=== PATIENT | female | born 1960 | race Caucasian/White ===

== ENCOUNTER → 2018-11-27 16:25 | Outpatient (CLI) | payer OTHER, SELFPAY ==
[2018-11-27 17:43] LABS: Absolute Neutrophil Count 3.8 X10^3/uL (2.0-7.7); Basophil# 0.04 X10^3/uL; Basophil% 0.7 % (0-1); Eosinophil# 0.04 X10^3/uL; Eosinophils% 0.7 % (0-5); Hematocrit 36.5 % (37-47); Hemoglobin 11.4 g/dL (12.0-15.0); Lymphocyte % 26.7 % (19-41); Mean Corp Hgb Conc 31.2 g/dL (32-36); Mean Corpuscular Hgb 26.5 pg (27.0-32.0); Mean Corpuscular Volume 84.9 fL (81-99); Mean Platelet Vol. 9.7 fl (6.2-12.0); Monocyte# 0.47 X10^3/uL; Monocyte% 7.8 % (0-10); NRBC Flagged by Analyzer 0 % (0-5); Neutrophil # 3.81 X10^3/uL (2.7-7.7); Neutrophil % 63.4 % (47-70); Platelet Count 290 K/mm3 (150-450); RBC Distribution Width CV 13.9 % (11.6-14.6)
[2018-11-27 17:53] LABS: Erythrocyte Sedimentation Rate 28 mm/hr (0-30)
[2018-11-27 18:15] LABS: AST(SGOT) 15 U/L (15-37); Alanine Aminotransfer ALT/SGPT 17 U/L (13-56); Albumin, Serum 3.8 g/dL (3.2-5.0); Alkaline Phosphatase 71 U/L (45-117); Anion Gap 8 (5-15); BUN 11 mg/dL (7-18); BUN/Creat Ratio 12.5 RATIO (10-20); CRP < 2.90 mg/L (0.0-3.0); Chloride 107 mmol/L (98-107); Creatinine, Serum 0.88 mg/dL (0.55-1.02); EST Glomerular Filtration Rate 70 mL/min (>60); Est Glom Filt Rate - Afr Amer 85 mL/min (>60); Globulin 3.8 g/dL (2.2-4.2); Glucose 83 mg/dL (74-106); Potassium 3.7 mmol/L (3.5-5.1); Protein, Total 7.6 g/dL (6.4-8.2); Rheumatoid Factor < 10.0 IU/mL (<15); Sodium Level 140 mmol/L (136-145); Thyroid Stim Hormone (TSH) 1.37 uIU/mL (0.358-3.74)
[2018-12-01 11:36] LABS: CCP IgG Antibodies 11 units (0-19)
[2018-12-01 16:07] LABS: Anti-Centromere B Ab <0.2 AI (0.0-0.9); Anti-Chromatin 0.2 AI (0.0-0.9); Anti-Jo <0.2 AI (0.0-0.9); Anti-Scleroderma-70 AB >8.0 AI (0.0-0.9); RNP Ab <0.2 AI (0.0-0.9); SJOGREN'S Anti-SS-A test < 0.2 AI (0.0-0.9); SJOGREN'S Anti-SS-B test < 0.2 AI (0.0-0.9); Smith Ab <0.2 AI (0.0-0.9)
[2018-12-02 10:00] LABS: Anti-dsDNA Ab 3 IU/mL (0-9)
== END ==
PROVIDERS: Family Provider Family Medicine; PCP Family Medicine; Visit Provider Family Medicine
DX: M25.50 Pain in unspecified joint (principal); R53.83 Other fatigue
CPT/HCPCS: 36415; 80053; 84443; 85025; 85652; 86140; 86200; 86225; 86235; 86431

== ENCOUNTER → 2018-12-31 10:36 | Outpatient (CLI) | payer OTHER, SELFPAY ==
--- NOTE | 2018-12-31 13:02 | NEURO ---
NCS and/or EMG Patient Report Ordering Doctor: Cyndee Srinivasan DATE OF SERVICE: 12/31/18 Esme Robles is a 58-year-old female who presents for electrodiagnostic testing of the upper limbs. She reports numbness and tingling in both hands, worse on the right side. Electrodiagnostic findings: Median motor nerve demonstrates normal distal latency, amplitude and conduction velocity bilaterally. Normal ulnar motor response bilaterally. Normal median and ulnar F waves. Sensory responses are within normal limits On needle EMG, complex repetitive discharges are noted in the right pronator teres. All other muscles tested showed no evidence of denervation with normal motor unit action potentials. Electrodiagnostic impression: This is an abnormal study. 1. The presence of complex repetitive discharges in the right pronator teres, which may be suggestive of chronic denervation but is of unknown clinical consequence. However, there is no electrodiagnostic evidence for peripheral neuropathy, including carpal tunnel syndrome. There is also no electrodiagnostic evidence for acute cervical radiculopathy. Would consider repeat electrodiagnostic study in 3 to 6 months if symptoms persist. If there are any further questions, please do not hesitate to contact me.
== END ==
PROVIDERS: Family Provider Family Medicine; PCP Family Medicine; Referring Provider Family Medicine; Visit Provider Family Medicine
DX: G56.00 Carpal tunnel syndrome, unspecified upper limb (principal)
CPT/HCPCS: 95886; 95913

== ENCOUNTER → 2019-01-26 08:52 | Outpatient (CLI) | payer OTHER, SELFPAY ==
[2019-01-26 09:58] LABS: EXAGEN MAILED SPECIMEN
[2019-01-26 10:34] LABS: Color, Urine Yellow (Yellow); Glucose, Dipstick Normal (Normal); Ketone-Dipstick Negative (Negative); Leukocyte Esterase-Dipstick 25 /ul (Negative); Nitrite-Dipstick Negative (Negative); Occult Blood-Urine Negative /ul (Negative); Protein-Dipstick Negative (Negative); Urine Bilirubin Dipstick Negative (Negative); Urine Clarity Clear (Clear); Urine Urobilinogen Normal (Normal)
[2019-01-26 10:47] LABS: Absolute Lymphocyte Count 1.48 X10^3/uL (0.83-4.51); Absolute Neutrophil Count 2.6 X10^3/uL (2.0-7.7); Basophil# 0.04 X10^3/uL; Basophil% 0.9 % (0-1); Eosinophil# 0.11 X10^3/uL; Eosinophils% 2.4 % (0-5); Hematocrit 36.7 % (37-47); Hemoglobin 11.5 g/dL (12.0-15.0); Lymphocyte # 1.48 X10^3/ul (4.0); Lymphocyte % 32.5 % (19-41); Mean Corp Hgb Conc 31.3 g/dL (32-36); Mean Corpuscular Hgb 26.7 pg (27.0-32.0); Mean Corpuscular Volume 85.3 fL (81-99); Mean Platelet Vol. 9.7 fl (6.2-12.0); Monocyte# 0.31 X10^3/uL; Monocyte% 6.8 % (0-10); NRBC Flagged by Analyzer 0 % (0-5); Neutrophil # 2.59 X10^3/uL (2.7-7.7); Neutrophil % 56.7 % (47-70); Platelet Count 310 K/mm3 (150-450); RBC Distribution Width CV 13.9 % (11.6-14.6); RBC Distribution Width SD 43.1 fl (35.1-43.9); White Blood Count 4.6 K/mm3 (4.4-11.0)
[2019-01-26 11:11] LABS: ALB/GLOB Ratio 0.9 RATIO (0.9-2.4); AST(SGOT) 18 U/L (15-37); Alanine Aminotransfer ALT/SGPT 23 U/L (13-56); Albumin, Serum 3.6 g/dL (3.2-5.0); Alkaline Phosphatase 65 U/L (45-117); Anion Gap 6 (5-15); BUN 12 mg/dL (7-18); BUN/Creat Ratio 15.7 RATIO (10-20); Calcium,Total 8.7 mg/dL (8.5-10.1); Chloride 109 mmol/L (98-107); Creatinine, Serum 0.77 mg/dL (0.55-1.02); EST Glomerular Filtration Rate 82 mL/min (>60); Est Glom Filt Rate - Afr Amer 99 mL/min (>60); Globulin 3.8 g/dL (2.2-4.2); Glucose 93 mg/dL (74-106); Protein, Total 7.4 g/dL (6.4-8.2); Sodium Level 140 mmol/L (136-145)
[2019-01-26 11:24] LABS: Protein, Urine (Random) 14.3 mg/dL (<11.9); Protein:Creat Ratio 71 mg/g CRE (0-200)
[2019-01-26 12:04] LABS: Hepatitis B Surface Antibody Reactive; Hepatitis B Surface Antigen Non-Reactive (Nonreactive); Hepatitis C Antibody Non-Reactive (Nonreactive)
[2019-01-27 08:22] LABS: Hepatitis B Core AB IgM Negative (Negative)
== END ==
PROVIDERS: Family Provider Family Medicine; PCP Family Medicine; Referring Provider Internal Medicine Rheumatology; Visit Provider Internal Medicine Rheumatology
DX: M06.4 Inflammatory polyarthropathy (principal); M18.0 Bilateral primary osteoarthritis of first carpometacarpal joints; R76.8 Other specified abnormal immunological findings in serum
CPT/HCPCS: 36415; 80053; 81002; 82570; 84156; 85025; 86705; 86706; 86803; 87340

== ENCOUNTER 2019-04-07 13:00 | Outpatient (RCR) | payer OTHER, SELFPAY ==
--- NOTE | 2019-03-04 14:15 | HP.PTEVAL ---
Patient's Visit Information ADIS MOLINA is a 59 year old F referred to Physical Therapy by Gabino Godinez MD with a diagnosis of CERVICALGIA, C6 DISTRIBUTION PAIN.. Date of Evaluation: 03/04/19 Physical Therapist: Jennifer Lama PT, Cert MDT - Visit Plan Frequency: 2x /Week Duration: 2 Months Plan: CERVICAL AND/OR SHOULDER US AND E-STIM WITH MH NEEDED. POSTURE CORRECTION/STRENGTHENING, INSTRUCTION IN APPROPRIATE BODY MECHANICS AND ACTIVITY MODIFICATIONS. MALENA UE ROM, STRETCHING AND STRENGTHENING. HEP INSTRUCTION. 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 Disability: NO. Present symptoms: NO NECK PAIN. MALENA SHOULDER PAIN RIGHT > LEFT. RIGHT HAND DOMINANT. MALENA FINGER NUMBNESS AT THE TIPS. TINGLING IN FEET AND TOES TOO. SOMETIMES HANDS GET NUMB SLEEPING WITH ELBOW BENT. Present since: ABOUT 3-4 MONTHS. Pain Scale: Worst - 4/10 Least - 1/10. Currently: 04/03. Commenced as a result of: NO APPARENT REASON. Symptoms at onset: NUMBNESS IN FINGER TIPS. Worse: SLEEPING WITH ELBOWS BENT. BEING AT COMPUTER TOO LONG, READING, LOOKING DOWN, DRIVING. Better: SLEEPING WITH ELBOWS STRAIGHT, HEAD ROLLS, LYING SUPINE. Disturbed sleep: YES. 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 Dizziness: NO. Tinnitis: NO. Nausea: NO. Shortness of Breath: NO. Difficulty Swollowing: NO. Gait: NORMAL. Accidents: RECENT FALL ON LEFT SHOULDER LAST SATURDAY - ALSO HIT THE BACK OF HER HEAD. SCRAPED BOTH KNEES AND LEFT THUMB. NO PHYSICIAN ASSESSMENT SINCE FALL. SHORT LITTLE FALL. Unexplained weight loss: NO. Imaging: RECENT NECK X-RAY - PATIENT HAS NOT RECEIVED THE RESULTS. DEC 2018 EMG - Electrodiagnostic impression: This is an abnormal study. 1. The presence of complex repetitive discharges in the right pronator teres, which may be suggestive of chronic denervation but is of unknown clinical consequence. However, there is no electrodiagnostic evidence for peripheral neuropathy, including carpal tunnel syndrome. There is also no electrodiagnostic evidence for acute cervical radiculopathy. Would consider repeat electrodiagnostic study in 3 to 6 months if symptoms persist. PMH/Recent major surgery: RECENTLY DIAGNOSED WITH RA AND SJORGREN'S DZ. OTEHR: PATIENT REPORTS HER EYES HAVE BEEN BOTHERING HER A LOT AND SHE HAS BEEN GETTING A RED RASH AROUND HER EYES THAT SHE HAS BEEN SEEN TWICE FOR. - Objective Sitting Posture/Standing Posture: POOR. FH. RS. INCREASED KYPHOSIS. Active Correction of posture: BETTER. Other Observations: INDEP GAIT AND TRANSFERS. PRETTY FLAT AFFECT THROUGHOUT THERAPY SESSION. Motor deficit: 25 LBS RIGHT AND 35 LBS LEFT (RIGHT HAND DOMINANT). MALENA UE'S GROSSLY 4/5 WITH MMT'ING. Sensory deficit: NO. ROM deficit: MALENA UE'S WFL. Reflexes: UNABLE TO ELICIT MALENA UE DTR'.S. Dural Signs: NEGATIVE MALENA UE'S. Cervical Mvmt Loss: Flex: NIL. Pro: NIL. Ext: MOD. Ret: TAYLOR. RSB: MOD. LSB: MOD. R Rot: MOD. L Rot: MOD. LEFT CERVICAL ROT TESTING PROVOKES RIGHT NECK PAIN. CERVCAL ROM TESTING HAS NE ON FINGERS. Postural strength: POOR. Palpation: PALPATION OF THE C456 REGION INCREASES RIGHT HAND SX'S BRIEFLY. - Goals Goal 1:: DECREASE C/O NECK AND UE SX'S. Goal Time Frame: 4-6 Weeks Goal 2:: IMPROVE LIFTING, READING, SLEEP, WORK AND DRIVING FUNCTION Goal Time Frame: 4-6 Weeks Goal 3:: INSTRUCT IN PROPHYLAXIS Goal Time Frame: 4-6 Weeks - Anticipated Interventions Patient/Client Instruction: Educate patient on: Condition, Plan of Care, Risk Factors, Benefits of Fitness Program For the Purpose of:: To improve self management Therapeutic Exercise to Include: Strength training, Endurance training, Body mechanics, Postural training, Scapular Strength/Stabilization For the Purpose of:: To decrease pain, To increase ROM, To improve muscle performance and motor function, To improve ability to perform ADL's, To improve ability of physical actions for home/community/work/leisure Thank you for the opportunity to evaluate your patient. For Medicare and Medicare HMO plans, please review the plan of care and approve it. It will need to be FAXED BACK to us at [phone] for Medicare purposes. For Medicare only, by signing this I certify the plan of care. Please let me know if there are questions or concerns regarding this plan of care. Physician Signature: Date:
--- NOTE | 2019-04-07 13:22 | HP.PTDCSUM_ITS ---
HP - PT D/C Summary It has been my pleasure to treat ADIS MOLINA under orders from Gabino Godinez MD, for the diagnosis of CERVICALGIA, C6 DISTRIBUTION PAIN. for a total of 6 visit(s). Discharge Date: 04/07/19 Please see the following information for a summary of their discharge status. - Subjective Subjective: PATIENT REPORTS SHE HAS BEEN DOING HER EX'S EVERY DAY AND SHE HAS BEEN DOING GOOD SINCE LAST VISIT. - Pain NECK Pain Intensity (Out of 10): 0 WRISTS AND HANDS Pain Intensity (Out of 10): 0 NUMBNESS/TINGLING Pain Intensity (Out of 10): 0 - Overall Improvement % Improvement: 100 - Objective Objective/Function: PATIENT WAS SEEN TODAY FOR RE-ASSESSMENT OF PROGRESS TOWARD THE SET PT GOALS AND THE NEED FOR FURTHER PHYSICAL THERAPY VS READINESS FOR DISCHARGE. UPON EXAM, ALL GOALS HAVE BEEN MET. SHE IS PAINFREE AND INDEP WITH A HEP. RIGHT INFECTION CONTROL NURSE STRENGTH HAS IMPROVED TO 40 LBS AND LEFT 42 LBS. - Goals Goal 1:: DECREASE C/O NECK AND UE SX'S. Goal Progress: Goal Met Goal 2:: IMPROVE LIFTING, READING, SLEEP, WORK AND DRIVING FUNCTION Goal Progress: Goal Met Goal 3:: INSTRUCT IN PROPHYLAXIS Goal Progress: Goal Met - Plan Plan: D/C - PATIENT AGREEABLE. - D/C Information If there are questions or concerns regarding this patient's physical therapy, please feel free to call me at [phone]. Thank you for the referral of this patient. Sincerely, Jennifer Lama, PT, Cert MDT
== END 2019-04-07 19:00 | disposition home or self-care (01) ==
LOC: PT 13:00
PROVIDERS: Family Provider Family Medicine; PCP Family Medicine; Referring Provider Psychiatry & Neurology Neurology; Visit Provider Psychiatry & Neurology Neurology
DX: M54.2 Cervicalgia (principal); R20.0 Anesthesia of skin; R53.1 Weakness
CPT/HCPCS: 97014; 97035; 97162; 97164; 97530; G0283

== ENCOUNTER → 2019-05-19 09:00 | Outpatient (CLI) | payer OTHER, SELFPAY ==
[2019-05-19 10:41] LABS: Absolute Lymphocyte Count 1.46 X10^3/uL (0.83-4.51); Absolute Neutrophil Count 2.5 X10^3/uL (2.0-7.7); Basophil# 0.05 X10^3/uL; Basophil% 1.1 % (0-1); Eosinophil# 0.08 X10^3/uL; Eosinophils% 1.7 % (0-5); Hematocrit 37.8 % (37-47); Hemoglobin 11.6 g/dL (12.0-15.0); Lymphocyte # 1.46 X10^3/ul (4.0); Lymphocyte % 31.3 % (19-41); Mean Corp Hgb Conc 30.7 g/dL (32-36); Mean Corpuscular Hgb 25.1 pg (27.0-32.0); Mean Corpuscular Volume 81.6 fL (81-99); Mean Platelet Vol. 9.7 fl (6.2-12.0); Monocyte# 0.49 X10^3/uL; Monocyte% 10.5 % (0-10); NRBC Flagged by Analyzer 0 % (0-5); Neutrophil # 2.53 X10^3/uL (2.7-7.7); Neutrophil % 54.3 % (47-70); Platelet Count 294 K/mm3 (150-450); RBC Distribution Width CV 15.4 % (11.6-14.6); RBC Distribution Width SD 45.1 fl (35.1-43.9); Red Blood Count 4.63 M/mm3 (4.2-5.4); White Blood Count 4.7 K/mm3 (4.4-11.0)
[2019-05-19 10:59] LABS: AST(SGOT) 14 U/L (15-37); Alanine Aminotransfer ALT/SGPT 21 U/L (13-56); Albumin, Serum 3.8 g/dL (3.2-5.0); Alkaline Phosphatase 63 U/L (45-117); Anion Gap 3 (5-15); BUN 12 mg/dL (7-18); BUN/Creat Ratio 14.5 RATIO (10-20); Calcium,Total 8.7 mg/dL (8.5-10.1); Chloride 108 mmol/L (98-107); Creatinine, Serum 0.82 mg/dL (0.55-1.02); EST Glomerular Filtration Rate 75 mL/min (>60); Est Glom Filt Rate - Afr Amer 91 mL/min (>60); Globulin 3.8 g/dL (2.2-4.2); Glucose 91 mg/dL (74-106); Potassium 3.9 mmol/L (3.5-5.1); Protein, Total 7.6 g/dL (6.4-8.2); Sodium Level 140 mmol/L (136-145)
== END ==
PROVIDERS: PCP Family Medicine; Referring Provider Internal Medicine Rheumatology; Visit Provider Internal Medicine Rheumatology
DX: M06.4 Inflammatory polyarthropathy (principal); R76.8 Other specified abnormal immunological findings in serum; M18.0 Bilateral primary osteoarthritis of first carpometacarpal joints
CPT/HCPCS: 36415; 80053; 85025

== ENCOUNTER → 2019-08-14 09:26 | Outpatient (CLI) | payer OTHER, SELFPAY ==
[2019-08-14 12:24] LABS: Absolute Lymphocyte Count 1.39 X10^3/uL (0.83-4.51); Absolute Neutrophil Count 2.8 X10^3/uL (2.0-7.7); Basophil# 0.05 X10^3/uL; Eosinophil# 0.11 X10^3/uL; Eosinophils% 2.3 % (0-5); Hematocrit 39.2 % (37-47); Hemoglobin 12.3 g/dL (12.0-15.0); Lymphocyte # 1.39 X10^3/ul (4.0); Lymphocyte % 28.8 % (19-41); Mean Corp Hgb Conc 31.4 g/dL (32-36); Mean Corpuscular Hgb 26.5 pg (27.0-32.0); Mean Corpuscular Volume 84.3 fL (81-99); Mean Platelet Vol. 9.7 fl (6.2-12.0); Monocyte# 0.46 X10^3/uL; Monocyte% 9.5 % (0-10); NRBC Flagged by Analyzer 0 % (0-5); Neutrophil # 2.76 X10^3/uL (2.7-7.7); Neutrophil % 57.2 % (47-70); Platelet Count 286 K/mm3 (150-450); RBC Distribution Width CV 15.8 % (11.6-14.6); RBC Distribution Width SD 47.9 fl (35.1-43.9); Red Blood Count 4.65 M/mm3 (4.2-5.4); White Blood Count 4.8 K/mm3 (4.4-11.0)
[2019-08-14 12:55] LABS: AST(SGOT) 16 U/L (15-37); Alanine Aminotransfer ALT/SGPT 20 U/L (13-56); Albumin, Serum 3.6 g/dL (3.2-5.0); Alkaline Phosphatase 56 U/L (45-117); Anion Gap 4 (5-15); BUN 12 mg/dL (7-18); BUN/Creat Ratio 15.1 RATIO (10-20); Calcium,Total 8.7 mg/dL (8.5-10.1); Chloride 110 mmol/L (98-107); EST Glomerular Filtration Rate 78 mL/min (>60); Est Glom Filt Rate - Afr Amer 95 mL/min (>60); Globulin 3.6 g/dL (2.2-4.2); Glucose 91 mg/dL (74-106); Potassium 3.9 mmol/L (3.5-5.1); Protein, Total 7.2 g/dL (6.4-8.2); Sodium Level 140 mmol/L (136-145)
== END ==
PROVIDERS: PCP Family Medicine; Referring Provider Internal Medicine Rheumatology; Visit Provider Internal Medicine Rheumatology
DX: M06.4 Inflammatory polyarthropathy (principal); M18.0 Bilateral primary osteoarthritis of first carpometacarpal joints; M35.00 Sjogren syndrome, unspecified
CPT/HCPCS: 36415; 80053; 85025

== ENCOUNTER → 2022-01-19 | Outpatient (CLI) | payer OTHER, SELFPAY ==
[2022-01-19 11:58] LABS: Erythrocyte Sedimentation Rate 41 mm/hr (0-30)
[2022-01-19 12:12] LABS: ALB/GLOB Ratio 0.9 RATIO (0.9-2.4); AST(SGOT) 16 U/L (15-37); Alanine Aminotransfer ALT/SGPT 22 U/L (13-56); Albumin, Serum 3.7 g/dL (3.2-5.0); Alkaline Phosphatase 73 U/L (45-117); Anion Gap 6 (5-15); BUN 13 mg/dL (7-18); BUN/Creat Ratio 15.4 RATIO (10-20); CRP 6.53 mg/L (0.0-3.0); Calcium,Total 8.8 mg/dL (8.5-10.1); Chloride 106 mmol/L (98-107); Cholesterol 185 mg/dL (200); Creatinine, Serum 0.84 mg/dL (0.55-1.02); EST Glomerular Filtration Rate 73 mL/min (>60); Est Glom Filt Rate - Afr Amer 88 mL/min (>60); Globulin 3.9 g/dL (2.2-4.2); Glucose 97 mg/dL (74-106); High Density Lipoprotein 41 mg/dL; Potassium 3.9 mmol/L (3.5-5.1); Protein, Total 7.6 g/dL (6.4-8.2); Sodium Level 137 mmol/L (136-145); Triglycerides 76 mg/dL; Very Low Density Lipoprotein 15 mg/dL (5-40)
[2022-01-19 12:14] LABS: Absolute Lymphocyte Count 1.35 X10^3/uL (0.83-4.51); Absolute Neutrophil Count 3.1 X10^3/uL (2.0-7.7); Basophil# 0.05 X10^3/uL; Eosinophil# 0.15 X10^3/uL; Eosinophils% 2.9 % (0-5); Hematocrit 35.2 % (37-47); Hemoglobin 10.9 g/dL (12.0-15.0); Lymphocyte # 1.35 X10^3/ul (0.83-4.51); Lymphocyte % 26.1 % (19-41); Mean Corpuscular Hgb 24.2 pg (27.0-32.0); Mean Corpuscular Volume 78.2 fL (81-99); Mean Platelet Vol. 9.4 fl (6.2-12.0); Monocyte# 0.45 X10^3/uL; Monocyte% 8.7 % (0-10); NRBC Flagged by Analyzer 0 % (0-5); Neutrophil # 3.14 X10^3/uL (2.7-7.7); Neutrophil % 60.7 % (47-70); Platelet Count 304 K/mm3 (150-450); RBC Distribution Width CV 17.6 % (11.6-14.6); RBC Distribution Width SD 50.1 fl (35.1-43.9); White Blood Count 5.2 K/mm3 (4.4-11.0)
[2022-01-22 15:04] LABS: Ferritin 10 ng/mL (8-252); Iron 28 ug/dL (50-170)
== END | disposition home or self-care (01) ==
PROVIDERS: PCP Family Medicine; Visit Provider Family Medicine
DX: M35.00 Sjogren syndrome, unspecified (principal); E78.5 Hyperlipidemia, unspecified; D64.9 Anemia, unspecified; Z51.81 Encounter for therapeutic drug level monitoring
CPT/HCPCS: 36415; 80053; 80061; 82728; 83540; 85025; 85652; 86140

== ENCOUNTER → 2022-01-22 | Outpatient (CLI) | payer OTHER, SELFPAY ==
--- NOTE | 2022-01-22 16:03 | BI_ITS ---
MAMMOGRAPHY - BILATERAL SCREENING REASON FOR EXAM: Female, 62 years old. Routine annual screening examination. PERTINENT HISTORY: Non-contributory. TECHNIQUE: Digital bilateral breast vicky (3D mammographic acquisition) in the CC and MLO projections. 2-D mediolateral oblique (MLO) and craniocaudad (CC) views of both breasts were obtained. CAD: Full Field Digital Mammography with Computer Added Detection was performed. COMPARISON: No comparison mammograms available at this time. If any prior films become available, an addendum to this report can be generated. FINDINGS: Breast Composition: The breasts are heterogeneously dense, which may obscure small masses. There is a 9.1 mm x 10.5 mm well-defined nodule with punctate calcification in the deep central slightly medial aspect of the left breast. This is suggestive of a partially calcified fibroadenoma. Correlation with ultrasound is recommended. Stable fat-containing bilateral axillary lymph nodes. No other significant abnormalities are identified. BI/SCRN MAMM (CAD)W/VICKY BILAT IMPRESSION: 9.1 mm x 10.5 mm well-defined nodule with punctate calcification in the central slightly medial aspect of the left breast as described. Correlation with ultrasound is recommended. ASSESSMENT CATEGORY: BIRADS Category 0: Incomplete. Need additional imaging evaluation. A letter regarding these results will be sent to the patient by the facility within 30 days. Approximately 10% of breast cancers are not detected by mammography. A normal mammogram should not delay biopsy of a clinically suspicious abnormality. [id number] Electronically Signed: Keven Newman MD at 14:24 EDT ,
== END | disposition home or self-care (01) ==
LOC: OPBI 16:02
PROVIDERS: PCP Family Medicine; Visit Provider Family Medicine
DX: Z12.31 Encounter for screening mammogram for malignant neoplasm of breast (principal)
CPT/HCPCS: 77063; 77067

== ENCOUNTER → 2022-01-26 | Outpatient (CLI) | payer OTHER, SELFPAY ==
--- NOTE | 2022-01-26 10:49 | US_ITS ---
STUDY: ULTRASOUND BREAST - RIGHT REASON FOR EXAM: Female, 62 years old. Abnormal screening mammogram. TECHNIQUE: Axial and longitudinal images of the RIGHT breast were performed with a high resolution ultrasound transducer. # OF IMAGES: 6 COMPARISON: Comparison is made with prior mammogram dated 01/22/2022. FINDINGS: RIGHT Breast: There is a 1.2 cm x 0.9 cm x 0.7 cm cyst at the 9 o''clock position of the breast at 1 cm from nipple. US/Breast Limited Unilateral IMPRESSION: 1.2 cm x 0.9 cm x 0.7 cm cyst in the retroareolar region of the breast. ASSESSMENT CATEGORY: BIRADS Category 2: Benign. A letter regarding these results will be sent to the patient by the facility within 30 days. Electronically Signed: Keven Newman MD at 12:42 EST ,
== END | disposition home or self-care (01) ==
PROVIDERS: PCP Family Medicine; Referring Provider Family Medicine; Visit Provider Family Medicine
DX: R92.2 Inconclusive mammogram (principal)
CPT/HCPCS: 76642

== ENCOUNTER 2022-10-30 13:31 | Outpatient (CLI) | payer OTHER, SELFPAY ==
--- NOTE | 2022-10-30 13:36 | ECHOD_ITS ---
Reason For Study: CROW/CSA Procedure This was a 2D Doppler, Color Flow transthoracic echocardiogram. Exam performed in department. Left Ventricle Normal LV size. Left ventricular systolic function is normal. The estimated ejection fraction is 60 %. No regional wall motion abnormalities noted. Right Ventricle Normal RV size. Normal systolic function. Atria Normal left atrium. Normal right atrium. Mitral Valve Normal mitral valve. Tricuspid Valve Normal tricuspid valve. Mild (1+) tricuspid valve insufficiency. Pulmonary artery systolic pressure is 30 mmHg. Aortic Valve Normal aortic valve. Mild (1+) aortic valve insufficiency. Pulmonic Valve Normal pulmonic valve. Great Vessels Normal aortic root. The pulmonary artery is normal size. Normal inferior vena cava. Pericardium/Pleural No pericardial effusion. MMode/2D Measurements & Calculations LVIDd: 4.5 cm IVSd: 1.0 cm Ao root diam: 3.0 cm LVIDs: 2.9 cm LVPWd: 0.90 cm LA dimension: 3.9 cm RVDd: 4.1 cm FS: 36.7 % LAV(MOD-bp): 58.1 ml LVAd ap4: 29.6 cm2 SV(MOD-sp4): 59.2 ml LAV(MOD-bp) Indexed: 27.1 ml/m2 LVLd ap4: 8.1 cm LAV(MOD-sp2): 50.1 ml EDV(MOD-sp4): 88.1 ml LAV(MOD-sp4): 62.3 ml EDV(sp4-el): 91.8 ml LVAs ap4: 14.9 cm2 LVLs ap4: 6.5 cm ESV(MOD-sp4): 29.0 ml ESV(sp4-el): 29.4 ml EF(MOD-sp4): 67.1 % EF(sp4-el): 68.0 % SV(sp4-el): 62.5 ml LA A4 area: 20.1 cm2 RA A4 area: 18.2 cm2 Time Measurements MV dec time: 0.16 sec Doppler Measurements & Calculations MV E max willi: 110.9 cm/sec Lat Peak E' Willi: 11.8 cm/sec Med Peak E' Willi: 11.7 cm/sec MV A max willi: 100.0 cm/sec E/E' lat: 9.4 E/E' med: 9.5 MV E/A: 1.1 MV V2 max: 142.8 cm/sec MV P1/2t max willi: 142.8 cm/sec Ao V2 max: 166.9 cm/sec MV max P.2 mmHg MV P1/2t: 63.1 msec Ao max P.2 mmHg MV V2 mean: 79.3 cm/sec Ao V2 mean: 113.4 cm/sec MV mean P.0 mmHg MV dec slope: 663.4 cm/sec2 Ao mean P.9 mmHg MV V2 VTI: 37.1 cm MVA(P1/2t): 3.5 cm2 Ao V2 VTI: 39.8 cm AV (velocity ratio): 0.74 AI max willi: 357.5 cm/sec LV V1 max: 123.9 cm/sec PA V2 max: 115.0 cm/sec AI max P.2 mmHg LV V1 max P.1 mmHg PA V2 mean: 86.9 cm/sec AI dec slope: 152.3 cm/sec2 LV V1 mean P.3 mmHg AI P1/2t: 687.4 msec LV V1 mean: 85.2 cm/sec LV V1 VTI: 29.5 cm TR max willi: 255.7 cm/sec TR max P.2 mmHg ECHO/Echo Complete Interpretation Summary Normal LV size. Left ventricular systolic function is normal. The estimated ejection fraction is 60 %. Structurally normal valves. Ordering Physician: Jace Castillo V Referring Physician: Cyndee Srinivasan Performed By: Sea Rooney RCS
== END 2022-10-30 23:59 | disposition home or self-care (01) ==
PROVIDERS: PCP Family Medicine; Referring Provider Internal Medicine Pulmonary Disease; Visit Provider Internal Medicine Pulmonary Disease
DX: G47.33 Obstructive sleep apnea (adult) (pediatric) (principal); G47.37 Central sleep apnea in conditions classified elsewhere
CPT/HCPCS: 93306

== ENCOUNTER → 2024-12-04 | Outpatient (CLI) | payer OTHER, SELFPAY ==
--- OUTSIDE RECORDS SUMMARY | 2024-12-04 18:54 | XMS RPT_ITS | CCD ---
Author Organization [facility] Care Team Providers Care Graphic User Interface Designer Name Role Phone AQUILES VALENCIA Admitting Unavailable ERIKAQUILES Attending Unavailable AQUILES VALENCIA Primary Care Unavailable DR CYNDEE SRINIVASAN DO Primary Care Physician Zarina, Dr. Cotter Primary Care Provider Dr. Azar Rayo Attending Provider [phone] Malys, Cyndee Primary Care Unavailable Malys, Cyndee Attending Unavailable Malys, Cyndee Primary Care Unavailable Azar Rayo Attending Unavailable Malys, Cyndee Primary Care Unavailable Sibilia, Jace V Attending Unavailable Sibilia, Jace V Referring Unavailable Malys, Cyndee Primary Care Unavailable Malys, Cyndee Attending Unavailable Malys, Cyndee Primary Care Unavailable Malys, Cyndee Attending Unavailable Malys, Cyndee Referring Unavailable Malys, Cyndee Primary Care Unavailable Malys, Cyndee Attending Unavailable NANETTE PATEL MD Attending Unavailable LAMYS , DR CYNDEE White Primary Care Unavailable Medications Current Medications Medication Drug Class(es) Dates Sig (Normalized) Sig (Original) acetaminophen 325 mg / HYDROcodone bitartrate 5 mg oral tablet (1 source) Opioid Agonist Start: 07-14-2015 [place] 325- 5 mg oral tablet Dose = 1 tab(s), Oral, q4h, PRN Pain, scale 1-4 ( Mild ), # 10 tab(s), 0 Refill(s) Start Date: 07/14/15 Status: Ordered Ascorbic Acid (2 sources) Vitamin C Start: 02-14-2022 Vitamin C qDay, 0 Refill(s) Start Date: 02/14/22 Status: Ordered ferrous sulfate 325 mg oral tablet (3 sources) Start: 07-05-2015 IRON (ferrous sulfate 325 mg) 65 mg oral tablet Dose : 325 mg = 1 tab(s), Oral, qDay, Take with food., # 60 tab(s), 3 Refill(s) Start Date: 02/14/22 Status: Ordered ibuprofen 600 mg oral tablet (2 sources) Nonsteroidal Anti-inflammatory Drug Start: 07-14-2015 Motrin 600 mg oral tablet Dose : 600 mg = 1 tab(s), Oral, q6h, # 20 tab(s), 0 Refill(s) Start Date: 07/14/15 Status: Ordered Multivitamin preparation (2 sources) Start: 07-05-2015 take 1 tablet by mouth once daily Multivitamin Dose = 1 tab(s), Oral, Daily, 0 Refill(s) Start Date: 07/05/15 Status: Ordered Vitamin B Complex oral capsule (2 sources) Start: 07-05-2015 take 1 capsule by mouth once daily Vitamin B Complex oral capsule Dose = 1 cap(s), Oral, Daily, 0 Refill(s) Start Date: 07/05/15 Status: Ordered vitamin B12 (2 sources) Vitamin B12 Start: 02-14-2022 Vitamin B12 0 Refill(s) Start Date: 02/14/22 Status: Ordered Vitamin D3 5000 intl units oral capsule (2 sources) Start: 07-05-2015 Vitamin D3 5000 intl units oral capsule Dose : 5,000 unit(s) = 1 cap(s), Oral, qDay, 0 Refill(s) Start Date: 07/05/15 Status: Ordered Problems Active Problems Problem Classification Problem Date Documented Da te Episodic/Chronic Nutritional deficiencies (2 sources) Vitamin D deficiency 07-05-2015 Chronic Osteoarthritis (2 sources) Arthritis 07-05-2015 Chronic Comment on above: Left shoulder Other female genital disorders (2 sources) Dysplasia of cervix 07-05-2015 Episodic Comment on above: Moderate Residual codes; unclassified (1 source) Obstructive sleep apnea (adult) (pediatric); Translations: [Obstructive sleep apnea (adult) (pediatric)] Onset: 11-08-2022 Chronic Residual codes; unclassified (1 source) Hypersomnia, unspecified; Translations: [Hypersomnia, unspecified] Onset: 02-03-2022 Chronic Residual codes; unclassified (1 source) 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 Comment on above: on CPAP Systemic lupus erythematosus and connective tissue disorders (1 source) Sicca syndrome, unspecified; Translations: [Sjogren syndrome, unspecified] Onset: 01-26-2022 Chronic Past or Other Problems Problem Classification Problem Date Documented Da te Episodic/Chronic Other screening for suspected conditions (not mental disorders or infectious disease) (3 sources) No current problems or disability; Translations: [No Chronic Problems] Onset: 01-27-2022 02-14-2022 Episodic Results Test Name Value Interpretation Reference Range Facil ity MA MAMMOGRAM SCREENING BILAT ERAL W/TOMOon 03-30-2023 MA MAMMOGRAM SCREENING BILATERAL W/VICKY ORIGINAL FROM: [place] [address] PROCEDURE FOR: [place] [address] Home: PID#: [id number] Exam#: [id number] : 1960 Age: 63 TO: NANETTE PATEL MD [address] [facility] [address] [place] [address] Fax: NO FAX EXAMINATION: SCREENING DIGITAL BILATERAL MAMMOGRAM WITH TOMOSYNTHESIS, 03/29/2023 6:01 am TECHNIQUE: Screening mammography of the bilateral breasts was performed with tomosynthesis. 2D standard and 3D tomosynthesis combination imaging performed through both breasts in the MLO and CC projection. Computer aided detection was utilized in the interpretation of this exam. COMPARISON: 01/22/2022, 10/04/2016 HISTORY: Breast cancer screening. FINDINGS: BREAST DENSITY: Scattered fibroglandular tissue There are benign calcifications in both breasts. There is a stable benign-appearing mass in the left breast. There are no significant masses or calcifications. IMPRESSION: No mammographic evidence of malignancy. Continued screening with annual mammograms is recommended. Angelia Browning risk calculations, generated with the history provided, report this patient's 10 year risk and lifetime risk for developing breast cancer at 2.9% and 6.6%, respectively. Based on this assessment tool, if the patient's calculated lifetime risk is below 20%, then the patient is considered at average risk for developing breast cancer. If the patient's calculated lifetime risk is at or above 20%, then the patient is considered high risk for developing breast cancer and may be a candidate for supplemental breast MRI screening in addition to annual mammographic screening per the [place] [employer]. BIRADS: MAMMOGRAM BI-RADS: 2: Benign finding RECALL: 1 year screening RECALL TYPE: mammo LETTER SENT: Normal BI-RADS 1 and 2 Interpreted by: Shawna An Preliminary Report By: Shawna An Electronically signed By Shawna An Dictated Date: 03/30/2023 10:20:37 AM Prelim Date: 03/30/2023 10:29:06 AM Sign Date: 03/30/2023 10:29:06 AM Ordering Provider: NANETTE PATEL Counter Pocket Sewer: CIERRA SARAVIA RT(R)(M)(CT) [employer] letter sent: Normal BI-RADS 1 and 2 Mammogram BI-RADS: 2 Benign Normal [facility] ([place]) Echo Completeon 10-30-2022 Echo Complete [facility] [address] [place] [address] Echo Complete 10/30/22 1407 MR#: [id number] Acct: [id number] Name: ADIS MOLINA Rep #: [id number] : 1960 62 From: Azar Rayo MD Attending Dr: Dr. Jace Castillo MD Status: REG CLI Ordering Dr: Jace Castillo MD Date: 10/30/22 Location: [facility] Sex: F C Admitted: Reason For Study: CROW/CSA Procedure This was a 2D Doppler, Color Flow transthoracic echocardiogram. Exam performed in department. Left Ventricle Normal LV size. Left ventricular systolic function is normal. The estimated ejection fraction is 60 %. No regional wall motion abnormalities noted. Right Ventricle Normal RV size. Normal systolic function. Atria Normal left atrium. Normal right atrium. Mitral Valve Normal mitral valve. Tricuspid Valve Normal tricuspid valve. Mild (1+) tricuspid valve insufficiency. Pulmonary artery systolic pressure is 30 mmHg. Aortic Valve Normal aortic valve. Mild (1+) aortic valve insufficiency. Pulmonic Valve Normal pulmonic valve. Great Vessels Normal aortic root. The pulmonary artery is normal size. Normal inferior vena cava. Pericardium/Pleural No pericardial effusion. MMode/2D Measurements Calculations LVIDd: 4.5 cm IVSd: 1.0 cm Ao root diam: 3.0 cm LVIDs: 2.9 cm LVPWd: 0.90 cm LA dimension: 3.9 cm RVDd: 4.1 cm FS: 36.7 % LAV(MOD-bp): 58.1 ml LVAd ap4: 29.6 cm2 SV(MOD-sp4): 59.2 ml LAV(MOD-bp) Indexed: 27.1 ml/m2 LVLd ap4: 8.1 cm LAV(MOD-sp2): 50.1 ml EDV(MOD-sp4): 88.1 ml LAV(MOD-sp4): 62.3 ml EDV(sp4-el): 91.8 ml LVAs ap4: 14.9 cm2 LVLs ap4: 6.5 cm ESV(MOD-sp4): 29.0 ml ESV(sp4-el): 29.4 ml EF(MOD-sp4): 67.1 % EF(sp4-el): 68.0 % SV(sp4-el): 62.5 ml LA A4 area: 20.1 cm2 RA A4 area: 18.2 cm2 Time Measurements MV dec time: 0.16 sec Doppler Measurements Calculations MV E max willi: 110.9 cm/sec Lat Peak E' Willi: 11.8 cm/sec Med Peak E' Iwlli: 11.7 cm/sec MV A max willi: 100.0 cm/sec E/E' lat: 9.4 E/E' med: 9.5 MV E/A: 1.1 MV V2 max: 142.8 cm/sec MV P1/2t max willi: 142.8 cm/sec Ao V2 max: 166.9 cm/sec MV max P.2 mmHg MV P1/2t: 63.1 msec Ao max P.2 mmHg MV V2 mean: 79.3 cm/sec Ao V2 mean: 113.4 cm/sec MV mean P.0 mmHg MV dec slope: 663.4 cm/sec2 Ao mean P.9 mmHg MV V2 VTI: 37.1 cm MVA(P1/2t): 3.5 cm2 Ao V2 VTI: 39.8 cm AV (velocity ratio): 0.74 AI max willi: 357.5 cm/sec LV V1 max: 123.9 cm/sec PA V2 max: 115.0 cm/sec AI max P.2 mmHg LV V1 max P.1 mmHg PA V2 mean: 86.9 cm/sec AI dec slope: 152.3 cm/sec2 LV V1 mean P.3 mmHg AI P1/2t: 687.4 msec LV V1 mean: 85.2 cm/sec LV V1 VTI: 29.5 cm TR max willi: 255.7 cm/sec TR max P.2 mmHg ECHO/Echo Complete Interpretation Summary Normal LV size. Left ventricular systolic function is normal. The estimated ejection fraction is 60 %. Structurally normal valves. Ordering Physician: Jace Castillo V Referring Physician: Cyndee Srinivasan Performed By: Sea Rooney RCS 10/31/22 1114 Date Azar Rayo MD CC: Dr. Cyndee Srinivasan DO; Dr. Jace Castillo MD Date Dictated: 10/30/22 1407 Date Transcribed: 10/31/22 1114 Occupational Therapy Technician: Signed Normal [facility] Breast Limited Unilateralon 01-26-2022 Breast Limited Unilateral [facility] Imaging Services [address] [place] [address] Breast Limited Unilateral MR#: [id number] Acct: [id number] Name: ADIS MOLINA Rep #: [id number] : 1960 F 62 From: Keven alvarez MD PCP: Dr. Cyndee Srinivasan DO Status: [facility] CLI Study: Breast Limited Unilateral Date of Exam: Exam# [id number] Ordering Dr: Cyndee Srinivasan DO STUDY: ULTRASOUND BREAST - RIGHT REASON FOR EXAM: Female, 62 years old. Abnormal screening mammogram. TECHNIQUE: Axial and longitudinal images of the RIGHT breast were performed with a high resolution ultrasound transducer. # OF IMAGES: 6 COMPARISON: Comparison is made with prior mammogram dated 01/22/2022. FINDINGS: RIGHT Breast: There is a 1.2 cm x 0.9 cm x 0.7 cm cyst at the 9 o''clock position of the breast at 1 cm from nipple. US/Breast Limited Unilateral IMPRESSION: 1.2 cm x 0.9 cm x 0.7 cm cyst in the retroareolar region of the breast. ASSESSMENT CATEGORY: BIRADS Category 2: Benign. A letter regarding these results will be sent to the patient by the facility within 30 days. Electronically Signed: Keven Newman MD at 12:42 EST Reading Location ID and State: [address] [place] [address] , Service support , CC: Dr. Cyndee Srinivasan, Occupational Therapy Technician: Signed Normal [facility] Ferritinon 01-22-2022 Ferritin [Mass/Vol] 10 ng/mL Normal 8-[address] [facility] Comment on above: Order Comment: DR MELODY PRINCE ADDED A FERRITIN AND FE. RANGLE Performed By: #### L 503.6150, L101.9900, L100.0100, L503.6550, L501.6710, L500.4050, L500.4100 #### [facility] [address] [place], [place], [address] Ironon 01-22-2022 Iron [Mass/Vol] 28 ug/dL Low 50-170 [facility] Comment on above: Order Comment: DR MELODY PRINCE ADDED A FERRITIN AND FE. RANGLE Performed By: #### L 503.6150, L101.9900, L100.0100, L503.6550, L501.6710, L500.4050, L500.4100 #### [facility] [address] [place], [address] SCRN MAMM (CAD)W/VICKY BILATo n 01-22-2022 SCRN MAMM (CAD)W/VICKY BILAT [facility] Imaging Services [address] [place] [address] SCRN MAMM (CAD)W/VICKY BILAT MR#: [id number] Acct: [id number] Name: ADIS MOLINA Rep #: [id number] : 1960 F 62 From: Keven alvarez MD PCP: Dr. Cyndee Srinivasan DO Status: [facility] Study: SCRN MAMM (CAD)W/VICKY BILAT Date of Exam: 12/25 04/15 Exam# [id number] Ordering Dr: Cyndee Srinivasan DO MAMMOGRAPHY - BILATERAL SCREENING REASON FOR EXAM: Female, 62 years old. Routine annual screening examination. PERTINENT HISTORY: Non-contributory. TECHNIQUE: Digital bilateral breast vikcy (3D mammographic acquisition) in the CC and MLO projections. 2-D mediolateral oblique (MLO) and craniocaudad (CC) views of both breasts were obtained. CAD: Full Field Digital Mammography with Computer Added Detection was performed. COMPARISON: No comparison mammograms available at this time. If any prior films become available, an addendum to this report can be generated. FINDINGS: Breast Composition: The breasts are heterogeneously dense, which may obscure small masses. There is a 9.1 mm x 10.5 mm well-defined nodule with punctate calcification in the deep central slightly medial aspect of the left breast. This is suggestive of a partially calcified fibroadenoma. Correlation with ultrasound is recommended. Stable fat-containing bilateral axillary lymph nodes. No other significant abnormalities are identified. BI/SCRN MAMM (CAD)W/VICKY BILAT IMPRESSION: 9.1 mm x 10.5 mm well-defined nodule with punctate calcification in the central slightly medial aspect of the left breast as described. Correlation with ultrasound is recommended. ASSESSMENT CATEGORY: BIRADS Category 0: Incomplete. Need additional imaging evaluation. A letter regarding these results will be sent to the patient by the facility within 30 days. Approximately 10% of breast cancers are not detected by mammography. A normal mammogram should not delay biopsy of a clinically suspicious abnormality. [id number] Electronically Signed: Keven Newman MD at 14:24 EDT , CC: Dr. Cyndee Srinivasan, DO Occupational Therapy Technician: Signed Normal [facility] Absolute lymphocyte counton 01-19-2022 Lymphocytes Auto (Unsp spec) [#/Vol] 1.35 10*3/uL 0.83-4.51 [facility] Work Phone: Basophil percentageon 2021 Basophils/100 WBC (Bld) 1.0 % 0-1 [facility] Work Phone: Bilirubin [Mass/Vol] 0.80 mg/dL 0.20-1.00 [facility] Work Phone: Comment on above: For patients on eltr ombopag therapy, use of Dimension [place] TBIL is not recommended. Chloride [Moles/Vol] 106 mmol/L 98-107 [facility] Work Phone: Cholesterol [Mass/Vol] 185 mg/dL <200 [facility] Work Phone: Comment on above: <200 mg/dL Desirable 200-240 mg/dL Borderline >240 mg/dL High Risk Eosinophils/100 WBC (Bld) 2.9 % 0-5 [facility] Work Phone: Glucose [Mass/Vol] 97 mg/dL 74-106 [facility] Work Phone: Neutrophils (Bld) [#/Vol] 3.1 10*3/uL 2.0-7.7 [facility] Work Phone: Neutrophils/100 WBC (Bld) 60.7 % 47-70 [facility] Work Phone: Potassium [Moles/Vol] 3.9 mmol/L 3.5-5.1 [facility] Work Phone: Protein [Mass/Vol] 7.6 g/dL 6.4-8.2 [facility] Work Phone: Sodium [Moles/Vol] 137 mmol/L 136-145 [facility] Work Phone: Triglyceride [Mass/Vol] 76 mg/dL <199 [facility] Work Phone: Comment on above: The drugs N-Acetylcy steine and Metamizole may falsely depress this assay.Serum Triglycerides Reference Interval Normal <150 mg/dL Borderline high 150 - 199 mg/dL High 200 - 499 mg/dL Very High > or = 500 mg/dL WBC (Bld) [#/Vol] 5.2 10*3/uL 4.4-11.0 [facility] Work Phone: Blood erythrocytes count (nu mber/volume)on 01-19-2022 RBC (Bld) [#/Vol] 4.50 10*6/uL 4.2-5.[address] [facility] Work Phone: Blood hemoglobin measurement (mass/volume)on 01-19-2022 Hemoglobin (Bld) [Mass/Vol] 10.9 g/dL 12.0-15.0 [facility] Work Phone: Blood lymphocytes/100 leukoc yteson 01-19-2022 Lymphocytes/100 WBC (Bld) 26.1 % 19-41 [facility] Work Phone: Blood monocytes/100 leukocyt eson 01-19-2022 Monocytes/100 WBC (Bld) 8.7 % 0-10 [facility] Work Phone: Blood platelet mean volumeon 10-28-2022 Platelet mean volume (Bld) [Entitic vol] 9.4 fL 6.2-12.0 [facility] Work Phone: CBC W/Diff, Automatedon 12-24 Absolute Lymph 1.35 X10 3/uL Normal 0.83-4.51 [facility] Comment on above: Performed By: #### L 503.6150, L101.9900, L100.0100, L503.6550, L501.6710, L500.4050, L500.4100 #### [facility] [address] [place], [address] Absolute Neut 3.1 X10 3/uL Normal 2.0-7.7 [facility] Comment on above: Performed By: #### L 503.6150, L101.9900, L100.0100, L503.6550, L501.6710, L500.4050, L500.4100 #### [facility] [address] [place], [address] Basophils/100 WBC (Bld) 1.0 % Normal 0-1 [facility] Comment on above: Performed By: #### L 503.6150, L101.9900, L100.0100, L503.6550, L501.6710, L500.4050, L500.4100 #### [facility] [address] [place], [address] Eosinophils/100 WBC (Bld) 2.9 % Normal 0-5 [facility] Comment on above: Performed By: #### L 503.6150, L101.9900, L100.0100, L503.6550, L501.6710, L500.4050, L500.4100 #### [facility] [address] [place], [address] Erythrocyte distribution width (RBC) [Ratio] 17.6 % High 11.6-14.6 [facility] Comment on above: Performed By: #### L 503.6150, L101.9900, L100.0100, L503.6550, L501.6710, L500.4050, L500.4100 #### [facility] [address] [place], [address] Hematocrit (Bld) [Volume fraction] 35.2 % Low 37-47 [facility] Comment on above: Performed By: #### L 503.6150, L101.9900, L100.0100, L503.6550, L501.6710, L500.4050, L500.4100 #### [facility] [address] [place], [address] Hemoglobin (Bld) [Mass/Vol] 10.9 g/dL Low 12.0-15.0 [facility] Comment on above: Performed By: #### L 503.6150, L101.9900, L100.0100, L503.6550, L501.6710, L500.4050, L500.4100 #### [facility] [address] [place], [address] IG% 0.600 Normal 0.0-0.9 [facility] Comment on above: Result Comment: IG% - Immature Granulocytes (promyelocytes, myelocytes and metamyelocytes) > 1% indicates that a LEFT SHIFT is Present. Performed By: #### L 503.6150, L101.9900, L100.0100, L503.6550, L501.6710, L500.4050, L500.4100 #### [facility] [address] [place], [address] Lymphocytes/100 WBC (Bld) 26.1 % Normal 19-41 [facility] Comment on above: Performed By: #### L 503.6150, L101.9900, L100.0100, L503.6550, L501.6710, L500.4050, L500.4100 #### [facility] [address] [place], [address] MCH (RBC) [Entitic mass] 24.2 pg Low 27.0-32.0 [facility] Comment on above: Performed By: #### L 503.6150, L101.9900, L100.0100, L503.6550, L501.6710, L500.4050, L500.4100 #### [facility] [address] [place], [address] MCHC (RBC) [Mass/Vol] 31.0 g/dL Low 32-36 [facility] Comment on above: Performed By: #### L 503.6150, L101.9900, L100.0100, L503.6550, L501.6710, L500.4050, L500.4100 #### [facility] [address] [place], [address] MCV (RBC) [Entitic vol] 78.2 fL Low 81-99 [facility] Comment on above: Performed By: #### L 503.6150, L101.9900, L100.0100, L503.6550, L501.6710, L500.4050, L500.4100 #### [facility] [address] [place], [address] Monocytes/100 WBC (Bld) 8.7 % Normal 0-10 [facility] Comment on above: Performed By: #### L 503.6150, L101.9900, L100.0100, L503.6550, L501.6710, L500.4050, L500.4100 #### [facility] [address] [place], [address] Neutrophils/100 WBC (Bld) 60.7 % Normal 47-70 [facility] Comment on above: Performed By: #### L 503.6150, L101.9900, L100.0100, L503.6550, L501.6710, L500.4050, L500.4100 #### [facility] [address] [place], [address] Nucleated RBC (Bld) [#/Vol] 0 10*3/uL Normal 0-5 [facility] Comment on above: Performed By: #### L 503.6150, L101.9900, L100.0100, L503.6550, L501.6710, L500.4050, L500.4100 #### [facility] [address] [place], [address] Platelet mean volume (Bld) [Entitic vol] 9.4 fL Normal 6.2-12.0 [facility] Comment on above: Performed By: #### L 503.6150, L101.9900, L100.0100, L503.6550, L501.6710, L500.4050, L500.4100 #### [facility] [address] [place], [address] Platelets (Bld) [#/Vol] 304 10*3/uL Normal 150-450 [facility] Comment on above: Performed By: #### L 503.6150, L101.9900, L100.0100, L503.6550, L501.6710, L500.4050, L500.4100 #### [facility] [address] [place], [address] RBC (Bld) [#/Vol] 4.50 10*6/uL Normal 4.2-5.[address] [facility] Comment on above: Performed By: #### L 503.6150, L101.9900, L100.0100, L503.6550, L501.6710, L500.4050, L500.4100 #### [facility] [address] [place], [address] RDW SD 50.1 fl High 35.1-43.9 [facility] Comment on above: Performed By: #### L 503.6150, L101.9900, L100.0100, L503.6550, L501.6710, L500.4050, L500.4100 #### [facility] [address] [place], [address] WBC (Bld) [#/Vol] 5.2 10*3/uL Normal 4.4-11.0 [facility] Comment on above: Performed By: #### L 503.6150, L101.9900, L100.0100, L503.6550, L501.6710, L500.4050, L500.4100 #### [facility] [address] [place], [address] CRPon 01-19-2022 C-REACTIVE PROT 6.53 mg/L High 0.0-3.0 [facility] Comment on above: Result Comment: C-Re active Protein (CRP) provides useful information for the diagnosis, therapy and monitoring of inflammatory processes and associated diseases. For the evaluation of Relative Risk for Cardiovascular Disease, a High Sensitivity CRP (HSCRP) should be ordered. Performed By: #### L 503.6150, L101.9900, L100.0100, L503.6550, L501.6710, L500.4050, L500.4100 #### [facility] [address] [place], [address] Comprehensive Metabolic Prof ilon 01-19-2022 Albumin [Mass/Vol] 3.7 g/dL Normal 3.2-5.0 [facility] Comment on above: Performed By: #### L 503.6150, L101.9900, L100.0100, L503.6550, L501.6710, L500.4050, L500.4100 #### [facility] [address] [place], [address] Albumin/Globulin [Mass ratio] 0.9 {ratio} Normal 0.9-2.4 [facility] Comment on above: Performed By: #### L 503.6150, L101.9900, L100.0100, L503.6550, L501.6710, L500.4050, L500.4100 #### [facility] [address] [place], [address] ALK P 73 U/L Normal 45-117 [facility] Comment on above: Performed By: #### L 503.6150, L101.9900, L100.0100, L503.6550, L501.6710, L500.4050, L500.4100 #### [facility] [address] [place], [address] ALT [Catalytic activity/Vol] 22 U/L Normal 13-56 [facility] Comment on above: Performed By: #### L 503.6150, L101.9900, L100.0100, L503.6550, L501.6710, L500.4050, L500.4100 #### [facility] [address] [place], [address] AST [Catalytic activity/Vol] 16 U/L Normal 15-37 [facility] [facility] Comment on above: Performed By: #### L 503.6150, L101.9900, L100.0100, L503.6550, L501.6710, L500.4050, L500.4100 #### [facility] [address] [place], [address] Bilirubin [Mass/Vol] 0.80 mg/dL Normal 0.20-1.00 [facility] Comment on above: Result Comment: For patients on eltrombopag therapy, use of Dimension [place] TBIL is not recommended. Performed By: #### L 503.6150, L101.9900, L100.0100, L503.6550, L501.6710, L500.4050, L500.4100 #### [facility] [address] [place], [address] BUN/CRE 15.4 RATIO Normal 10-20 [facility] Comment on above: Performed By: #### L 503.6150, L101.9900, L100.0100, L503.6550, L501.6710, L500.4050, L500.4100 #### [facility] [address] [place], [address] CA,Total 8.8 mg/dL Normal 8.5-10.1 [facility] Comment on above: Performed By: #### L 503.6150, L101.9900, L100.0100, L503.6550, L501.6710, L500.4050, L500.4100 #### [facility] [address] [place], [address] Chloride [Moles/Vol] 106 mmol/L Normal 98-107 [facility] Comment on above: Performed By: #### L 503.6150, L101.9900, L100.0100, L503.6550, L501.6710, L500.4050, L500.4100 #### [facility] [address] [place], [address] CO2 [Moles/Vol] 25.0 mmol/L Normal 21.0-32.0 [facility] Comment on above: Performed By: #### L 503.6150, L101.9900, L100.0100, L503.6550, L501.6710, L500.4050, L500.4100 #### [facility] [address] [place], [address] Creatinine [Mass/Vol] 0.84 mg/dL Normal 0.55-1.02 [facility] Comment on above: Result Comment: The validity of the calculated GFR GFRAA in patients over 70 years has not been determined. Clinical correlation is essential. Performed By: #### L 503.6150, L101.9900, L100.0100, L503.6550, L501.6710, L500.4050, L500.4100 #### [facility] [address] [place], [address] EST GFR - AA 88 mL/min Normal >60 [facility] Comment on above: Result Comment: Afri can [place] GFR Calc Performed By: #### L 503.6150, L101.9900, L100.0100, L503.6550, L501.6710, L500.4050, L500.4100 #### [facility] [address] [place], [address] GAP 6 Normal 5-15 [facility] Comment on above: Performed By: #### L 503.6150, L101.9900, L100.0100, L503.6550, L501.6710, L500.4050, L500.4100 #### [facility] [address] [place], [address] GFR/1.73 sq M.predicted among non-blacks MDRD (S/P/Bld) [Vol rate/Area] 73 mL/min/{1.73_m2} Normal >60 [facility] Comment on above: Result Comment: Non- GFR Calc Performed By: #### L 503.6150, L101.9900, L100.0100, L503.6550, L501.6710, L500.4050, L500.4100 #### [facility] [address] [place], [address] Globulin (S) [Mass/Vol] 3.9 g/dL Normal 2.2-4.2 [facility] Comment on above: Performed By: #### L 503.6150, L101.9900, L100.0100, L503.6550, L501.6710, L500.4050, L500.4100 #### [facility] [address] [place], [address] Glucose [Mass/Vol] 97 mg/dL Normal 74-106 [facility] Comment on above: Performed By: #### L 503.6150, L101.9900, L100.0100, L503.6550, L501.6710, L500.4050, L500.4100 #### [facility] [address] [place], [address] Potassium [Moles/Vol] 3.9 mmol/L Normal 3.5-5.1 [facility] Comment on above: Performed By: #### L 503.6150, L101.9900, L100.0100, L503.6550, L501.6710, L500.4050, L500.4100 #### [facility] [address] [place], [address] Sodium [Moles/Vol] 137 mmol/L Normal 136-145 [facility] Comment on above: Performed By: #### L 503.6150, L101.9900, L100.0100, L503.6550, L501.6710, L500.4050, L500.4100 #### [facility] [address] [place], [address] T PROT 7.6 g/dL Normal 6.4-8.2 [facility] Comment on above: Performed By: #### L 503.6150, L101.9900, L100.0100, L503.6550, L501.6710, L500.4050, L500.4100 #### [facility] [address] [place], [address] Urea nitrogen [Mass/Vol] 13 mg/dL Normal 7-18 [facility] Comment on above: Performed By: #### L 503.6150, L101.9900, L100.0100, L503.6550, L501.6710, L500.4050, L500.4100 #### [facility] [address] [place], [address] Determination of erythrocyte mean corpuscular volume (MCV)on 01-19-2022 MCV (RBC) [Entitic vol] 78.2 fL 81-99 [facility] Work Phone: Erythrocyte Sed Rateon 01-19 SED RATE 41 mm/hr High 0- [facility] Comment on above: Performed By: #### L 503.6150, L101.9900, L100.0100, L503.6550, L501.6710, L500.4050, L500.4100 #### [facility] [address] [place], [address] Erythrocyte sedimentation ra cody 01-19-2022 ESR (Bld) [Velocity] 41 mm/h 0- [facility] Work Phone: Hematocrit Auto (Bld) [Volum e fraction]on 01-19-2022 Hematocrit (Bld) [Volume fraction] 35.2 % 37-47 [facility] Work Phone: Iron measurement (mass/mass) on 01-19-2022 Iron (Unsp spec) [Mass/Mass] 28 ug/dL 50-170 [facility] Work Phone: Laboratory - Chemistry and C hemistry - challengeon 01-19-2022 ALP [Catalytic activity/Vol] 73 U/L 45-117 [facility] Work Phone: ALT [Catalytic activity/Vol] 22 U/L 13-56 [facility] Work Phone: CO2 [Moles/Vol] 25.0 mmol/L 21.0-32.0 [facility] Work Phone: Globulin (S) [Mass/Vol] 3.9 g/dL 2.2-4.2 [facility] Work Phone: Urea nitrogen/Creatinine [Mass ratio] 15.4 mg/mg 10-20 [facility] Work Phone: Laboratory - Hematology and Cell countson 01-19-2022 Erythrocyte distribution width (RBC) [Entitic vol] 50.1 fL 35.1-43.9 [facility] Work Phone: Erythrocyte distribution width (RBC) [Ratio] 17.6 % 11.6-14.6 [facility] Work Phone: Immature granulocytes/100 WBC (Bld) 0.600 % 0.0-0.9 [facility] Work Phone: Comment on above: IG% - Immature Granu locytes (promyelocytes, myelocytes and metamyelocytes) > 1% indicates that a LEFT SHIFT is Present. MCH (RBC) [Entitic mass] 24.2 pg 27.0-32.0 [facility] Work Phone: Nucleated RBC/100 WBC (Bld) [Ratio] 0 % 0-5 [facility] Work Phone: Lipid Profileon 01-19-2022 Cholesterol [Mass/Vol] 185 mg/dL Normal 200 [facility] Comment on above: Result Comment: <200 mg/dL Desirable 200-240 mg/dL Borderline >240 mg/dL High Risk Performed By: #### L 503.6150, L101.9900, L100.0100, L503.6550, L501.6710, L500.4050, L500.4100 #### [facility] [address] [place], [address] Cholesterol in HDL [Mass/Vol] 41 mg/dL Normal [facility] Comment on above: Result Comment: The drugs N-Acetylcysteine and Metamizole may falsely depress this assay. Reference Range HDL <40 mg/dL Low HDL Cholesterol HDL >or= 60 mg/dL High HDL Cholesterol Performed By: #### L 503.6150, L101.9900, L100.0100, L503.6550, L501.6710, L500.4050, L500.4100 #### [facility] [address] [place], [place], [id number] Cholesterol in LDL [Mass/Vol] 129 mg/dL Normal 0-130 [facility] Comment on above: Performed By: #### L 503.6150, L101.9900, L100.0100, L503.6550, L501.6710, L500.4050, L500.4100 #### [facility] [address] [place], [place], [id number] Cholesterol in VLDL [Mass/Vol] 15 mg/dL Normal 5-40 [facility] Comment on above: Performed By: #### L 503.6150, L101.9900, L100.0100, L503.6550, L501.6710, L500.4050, L500.4100 #### [facility] [address] [place], [address] Triglyceride [Mass/Vol] 76 mg/dL Normal [facility] Comment on above: Result Comment: The drugs N-Acetylcysteine and Metamizole may falsely depress this assay. Serum Triglycerides Reference Interval Normal <150 mg/dL Borderline high 150 - 199 mg/dL High 200 - 499 mg/dL Very High > or = 500 mg/dL Performed By: #### L 503.6150, L101.9900, L100.0100, L503.6550, L501.6710, L500.4050, L500.4100 #### [facility] [address] [place], [place], [id number] MCHC Auto (RBC) [Mass/Vol]on 01-19-2022 MCHC (RBC) [Mass/Vol] 31.0 g/dL 32-36 [facility] Work Phone: No Panel Informationon 01-19 Estimated GFR (MDRD) Amer 88 mL/min >60 [facility] Work Phone: Comment on above: GFR Calc Estimated GFR (MDRD) Non-Af Amer 73 mL/min >60 [facility] Work Phone: Comment on above: Non- GFR Calc Platelets bldon 01-19-2022 Platelets (Bld) [#/Vol] 304 10*3/uL 150-450 [facility] Work Phone: Serum or plasma C reactive p rotein measurement (mass/volume)on 01-19-2022 CRP [Mass/Vol] 6.53 mg/L 0.0-3.0 [facility] Work Phone: Comment on above: C-Reactive Protein ( CRP) provides useful information for thediagnosis, therapy and monitoring of inflammatory processesand associated diseases. For the evaluation of Relative Riskfor Cardiovascular Disease, a High Sensitivity CRP (HSCRP)should be ordered. Serum or plasma albumin ricky urement (mass/volume)on 01-19-2022 Albumin [Mass/Vol] 3.7 g/dL 3.2-5.0 [facility] Work Phone: Serum or plasma albumin/glob ulin mass ratioon 01-19-2022 Albumin/Globulin [Mass ratio] 0.9 {ratio} 0.9-2.4 [facility] Work Phone: Serum or plasma calcium ricky urement (mass/volume)on 01-19-2022 Calcium [Mass/Vol] 8.8 mg/dL 8.5-10.1 [facility] Work Phone: Serum or plasma cholesterol in HDL measurement (mass/volume)on 01-19-2022 Cholesterol in HDL [Mass/Vol] 41 mg/dL >40 [facility] Work Phone: Comment on above: The drugs N-Acetylcy steine and Metamizole may falsely depress this assay. Reference Range HDL <40 mg/dL Low HDL Cholesterol HDL >or= 60 mg/dL High HDL Cholesterol Serum or plasma cholesterol in VLDL measurement (mass/volume)on 01-19-2022 Cholesterol in VLDL [Mass/Vol] 15 mg/dL 5-40 [facility] Work Phone: Serum or plasma creatinine m easurement (mass/volume)on 01-19-2022 Creatinine [Mass/Vol] 0.84 mg/dL 0.55-1.02 [facility] Work Phone: Comment on above: The validity of the calculated GFR & GFRAA in patients over 70 years has not been determined. Clinical correlation is essential. Serum or plasma ferritin moise surement (mass/volume)on 01-19-2022 Ferritin [Mass/Vol] 10 ng/mL 8-[address] [facility] Work Phone: Serum or plasma low density lipoprotein (LDL) cholesterol measurement (mass/volume)on 01-19-2022 Cholesterol in LDL [Mass/Vol] 129 mg/dL 0-130 [facility] Work Phone: Serum or plasma urea nitroge n measurement (mass/volume)on 01-19-2022 Urea nitrogen [Mass/Vol] 13 mg/dL 7-18 [facility] Work Phone: Thin prep Papanicolaou smear with manual screeningon 01-19-2022 Thin prep Papanicolaou smear with manual screening 16 U/L 15-37 [facility] Work Phone: Thin prep Papanicolaou smear with manual screening 6 5-15 [facility] Work Phone: CNOVon 08-01-2020 CNOV Office Visit (PODIWS ) ADIS MOLINA ([id number]) 1960 F Date Time Provider Department 08/01/20 11:30 AM LAZARUS STOCKTON PODARLETTE During your visit today, we recorded the following information about you: Vivian Daily Ma 08/01/2020 12:04 PM Signed AMB ROOMING INTAKE FLOWSHEET DATA Patient presents with: Left Foot - New, Pain Lazarus Stockton DPM 08/01/2020 12:04 PM Signed Initial Podiatric Office Visit: Chief Complaint: This 60 year old female who presents with chief complaint:left foot pain HPI Patient presents to clinic with complaint of left foot pain and swelling. She first noticed pain in the left lateral foot about 3 weeks ago. She states the pain and swelling was along the lateral 5th metatarsal base. She feels that she may have irritated her foot doing gardening and wearing unsupportive shoes. She has since rested her foot and the pain and swelling subsided. She was going to cancel but just to be safe, went and came to her appointment. She does have xrays to review. PAIN EVALUATION No data found in the last 1 encounters. No results found for: HBA1C PCP: No primary care provider on file. History reviewed. No pertinent past medical history. No current outpatient medications on file. No current facility-administered medications for this visit. ALLERGIES No Known Allergies History reviewed. No pertinent surgical history. FAMILY HISTORY Problem Relation Age of Onset - Stroke Mother - Heart disease Mother - Cancer Father Social History Tobacco Use - Smoking status: Never Smoker - Smokeless tobacco: Never Used Substance Use Topics - Alcohol use: Not Currently - Drug use: Not on file REVIEW OF SYSTEMS GENERAL: Negative for Malaise, significant weight loss, fever RESPIRATORY: Negative for cough, wheezing and shortness of breath CARDIOVASCULAR: Negative for chest pain, leg swelling and palpitations GI: Negative for abdominal discomfort, blood in stools or black stools and change in bowel habits : Negative for dysuria, frequency and incontinence MUSCULOSKELETAL: Negative for joint pain or swelling, back pain, and muscle pain. SKIN: Negative for lesions, rash, and itching. HEMATOLOGY/LYMPHOLOGY Negative for prolonged bleeding, bruising easily, and swollen nodes. ENDOCRINE: Negative for cold or heat intolerance, polyuria, polydipsia and goiter. NEURO: negative Physical Exam: Constitutional: Pt is a well developed 60 year old female who is alert, oriented and cooperative Eyes: Following during examination. No redness or drainage. Respiratory: RR normal and nonlabored. Even breathing. No evidence of distress or shortness of breath. Psychology: Patient is engaged during conversation. Normal affect and mood. Does not appear depressed or anxious during encounter. Vascular: Dorsalis pedis and posterior tibial pulses palpable as b/l Capillary Fill time < 5 seconds to digits 1-5 b/l Skin temperature warm to warm proximal to distal b/l Hair growth present to digits Neurological: intact light touch/epicritic sensation b/l intact protective sensation no significant neurological deficits Dermatological: Nails 1-5 b/l appear normal. Webspaces clean and dry 1-4 b/l. Skin appears well hydrated and supple. good color, texture, turgor. No open lesions present. No callosities present. Musculoskeletal/Ortho paedic: Patient has pain to palpation of left 5th metatarsal base Foot type is pronated structurally AJ ROM is full with knee extended and flexed 1st MPJ is full when loaded and no pain or crepitus are noted with ROM. MTJ, STJ are full and free of pain and crepitus. +5/5 muscle strength dorsiflexion, plantarflexion, inversion, eversion b/l Radiographs: 3 views left foot ordered August 01, 2020: I have personally reviewed and interpreted these XR myself: No acute findings ASSESSMENT: (M76.72) Peroneal tendinitis of left lower extremity (primary encounter diagnosis) (M21.41, M21.42) Pes planus of both feet PLAN: 1. History and physical examination performed. 2. XR reviewed with patient and interpreted today 3. Discussed probable etiology of left foot pain as peroneal tendonitis second to poorly supportive shoe gear. Recommend using lace up tennis shoes and otc inserts such as powerstep. 4. Offered powerstep inserts today but she declined 5. F/u yana Stockton DPM Podiatry [address] [facility] [address] Dept: [phone] Dept Referring Provider: SELF [200] Allergies As of Date: 08/01/2020 (No Known Allergies) Date Reviewed: 08/01/2020 Reviewed by: Vivian Daily Ma - Fully Assessed Reason for Visit: New [234871] Pain [78] Primary Visit Diagnosis:Peroneal tendinitis of left lower extremity [M76.72] Other Visit Diagnosis:Pes planus of both feet [M21.41, M21.42] Problem List As Of Date: 08/01/2020 (more content not included)... Normal [facility] XR FOOT 3V AP/LAT/OBL LTon 0 08-01-2020 XR FOOT 3V AP/LAT/OBL LT * * *Final Report* * * DATE OF EXAM: Aug 01 2020 11:15AM WRX [id number] - XR FOOT 3V AP/LAT/OBL LT / PROCEDURE REASON: Pain * * * * Physician Interpretation * * * * CLINICAL INDICATION: Pain TECHNIQUE: 3 view radiographic study of the left foot with inclusion of a single frontal view of the right foot for purposes of comparison/symmetry COMPARISON: None FINDINGS: No fracture or dislocation identified. Small plantar and dorsal calcaneal enthesophytes. Joint spaces preserved. IMPRESSION: 1. No radiographic evidence of acute osseous injury. 2. Calcaneal enthesophytes. 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 This test was developed and its performance characteristics determined by [facility] [place]. This test has been authorized by FDA under an Emergency Use Authorization (EUA). This test has been validated in accordance with the FDA's Guidance Document Policy for Diagnostics Testing in Laboratories Certified to Perform High Complexity Testing under CLIA prior to Emergency use Authorization for Coronavirus Disease 2019 during the Public Health Emergency issued on May 23, 2019. [facility] [address] [place] [address] Buster Blackburn III, M.D. 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 [facility] Comment on above: Result Comment: Nega tive for This test was developed and its performance characteristics determined by [facility] [place]. This test has been authorized by FDA under an Emergency Use Authorization (EUA). This test has been validated in accordance with the FDA's Guidance Document Policy for Diagnostics Testing in Laboratories Certified to Perform High Complexity Testing under CLIA prior to Emergency use Authorization for Coronavirus Disease 2019 during the Public Health Emergency issued on May 23, 2019. COVID19 (SARS This test was developed and its performance characteristics determined by [facility] [place]. This test has been authorized by FDA under an Emergency Use Authorization (EUA). This test has been validated in accordance with the FDA's Guidance Document Policy for Diagnostics Testing in Laboratories Certified to Perform High Complexity Testing under CLIA prior to Emergency use Authorization for Coronavirus Disease 2019 during the Public Health Emergency issued on May 23, 2019. CoV2) by PCR. This test was developed and its performance characteristics determined by [facility] [place]. This test has been authorized by FDA under an Emergency Use Authorization (EUA). This test has been validated in accordance with the FDA's Guidance Document Policy for Diagnostics Testing in Laboratories Certified to Perform High Complexity Testing under CLIA prior to Emergency use Authorization for Coronavirus Disease 2019 during the Public Health Emergency issued on May 23, 2019. 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 Normal [facility] Comment on above: Result Comment: Naso pharyngeal Corrected on 01/10 AT 0701: Previously reported as U Swab Corrected on 01/10 AT 0701: Previously reported as U Encounters Encounter Date Encounter Type Care Provider Facility Start: 03-29-2023 End: 03-30-2023 ambulatory NANETTE PATEL MD Facility:[facility] Start: 03-29-2023 End: 03-29-2023 Patient encounter procedure NANETTE PATEL MD [facility] Start: 10-30-2022 End: 10-31-2022 ambulatory Cyndee Sindeniz Facility:[facility] Start: 10-30-2022 Non-patient / Non-visit Dr. Beronica Srinivasan Work Phone: [facility] Start: 10-30-2022 End: 10-30-[address] Cyndee Srinivasan Work Phone: [facility] Work Phone: Start: 10-30-2022 End: 10-30-[address] Cyndee Srinivasan Work Phone: [facility] Work Phone: Start: 02-14-2022 End: 02-18-2022 Outreach Lab NANETTE PATEL MD [facility] Start: 02-06-2022 ambulatory Cyndee Zarina Facility:[facility] Start: 01-26-2022 End: 01-26-2022 ambulatory Cyndee [facility] Work Phone: Start: 01-26-2022 End: 01-26-2022 Patient encounter procedure [facility] Start: 01-22-2022 End: 01-22-2022 Patient encounter procedure [facility] Start: 01-22-2022 End: 01-22-2022 ambulatory Cyndee [facility] Work Phone: Start: 01-19-2022 End: 01-19-2022 ambulatory Cyndee [facility] Work Phone: Start: 01-19-2022 End: 01-19-2022 Patient encounter procedure [facility] Start: 01-08-2020 End: 01-08-2020 Patient encounter procedure AQUILES VALENCIA [facility] Procedures Date Procedure Procedure Detail Performing Clinician Start: 01-26-2022 Ultrasonography of breast Start: 01-22-2022 Screening mammography Start: 10-11-2009 Hysteroscopy NANETTE BUTLER MD Comment on above: D&C Dilation and curettage PANKAJ PATEL MD Loop electrosurgical excision procedure of cervix NANETTE PATEL MD Plan of Treatment Date Care Activity Detail Author Start: 01-26-2022 Ultrasonography of breast Breast Limited Unilateral [facility] Work Phone: Start: 01-26-2022 US Breast limited [facility] Work Phone: Payers Date Payer Category Payer Unknown [id number] 2022 Self-pay [id number] 2022 Unknown [id number] 1960 Unknown [id number] 2.16.8 [id number] 1960 Unknown [id number] 2.16.84 [id number] Unknown [id number] 2.16.8 [id number] Unknown [id number] 2.16.8 [id number] Unknown [id number] 2.16.8 [id number] Unknown [id number] 2.16.8 [id number] Unknown [id number] 2.16.8 [id number] Unknown [id number] 2.16.8 [id number] Social History Date Type Detail Facility Tobacco smoking stat [facility] Unknown if ever smoked [facility] Work Phone: Start: 1960 Sex Assigned At Female A [facility] Start: 02-14-2022 Tobacco smoking status Never s moked tobacco (finding) [facility] Evaluation + Plan note 02-14-2022 Laboratory Note Date & Type Note Facility 02-14-2022 Evaluation + Plan note Future Scheduled TestsPathology Second Vp Hr Assessment Request 02/14/22 [facility] Deni Progress note 08-01-2020 Note Date & Type Note Facility 08-01-2020 Note HNO ID: [id number] Author: Lazarus Stockton Service: ? Author Type: Physician Type: Progress Notes Filed: 08/01/2020 12:04 PM Note Text: Initial Podiatric Office Visit: Chief Complaint: This 60 year old female who presents with chief complaint:left foot pain HPI Patient presents to clinic with complaint of left foot pain and swelling. She first noticed pain in the left lateral foot about 3 weeks ago. She states the pain and swelling was along the lateral 5th metatarsal base. She feels that she may have irritated her foot doing gardening and wearing unsupportive shoes. She has since rested her foot and the pain and swelling subsided. She was going to cancel but just to be safe, went and came to her appointment. She does have xrays to review. PAIN EVALUATION No data found in the last 1 encounters. No results found for: HBA1C PCP: No primary care provider on file. History reviewed. No pertinent past medical history. No current outpatient medications on file. No current facility-administered medications for this visit. ALLERGIES No Known Allergies History reviewed. No pertinent surgical history. FAMILY HISTORY Problem Relation Age of Onset - Stroke Mother - Heart disease Mother - Cancer Father Social History Tobacco Use - Smoking status: Never Smoker - Smokeless tobacco: Never Used Substance Use Topics - Alcohol use: Not Currently - Drug use: Not on file REVIEW OF SYSTEMS GENERAL: Negative for Malaise, significant weight loss, fever RESPIRATORY: Negative for cough, wheezing and shortness of breath CARDIOVASCULAR: Negative for chest pain, leg swelling and palpitations GI: Negative for abdominal discomfort, blood in stools or black stools and change in bowel habits : Negative for dysuria, frequency and incontinence MUSCULOSKELETAL: Negative for joint pain or swelling, back pain, and muscle pain. SKIN: Negative for lesions, rash, and itching. HEMATOLOGY/LYMPHOLOGY Negative for prolonged bleeding, bruising easily, and swollen nodes. ENDOCRINE: Negative for cold or heat intolerance, polyuria, polydipsia and goiter. NEURO: negative Physical Exam: Constitutional: Pt is a well developed 60 year old female who is alert, oriented and cooperative Eyes: Following during examination. No redness or drainage. Respiratory: RR normal and nonlabored. Even breathing. No evidence of distress or shortness of breath. Psychology: Patient is engaged during conversation. Normal affect and mood. Does not appear depressed or anxious during encounter. Vascular: Dorsalis pedis and posterior tibial pulses palpable as b/l Capillary Fill time < 5 seconds to digits 1-5 b/l Skin temperature warm to warm proximal to distal b/l Hair growth present to digits Neurological: intact light touch/epicritic sensation b/l intact protective sensation no significant neurological deficits Dermatological: Nails 1-5 b/l appear normal. Webspaces clean and dry 1-4 b/l. Skin appears well hydrated and supple. good color, texture, turgor. No open lesions present. No callosities present. Musculoskeletal/Orthopaedic: Patient has pain to palpation of left 5th metatarsal base Foot type is pronated structurally AJ ROM is full with knee extended and flexed 1st MPJ is full when loaded and no pain or crepitus are noted with ROM. MTJ, STJ are full and free of pain and crepitus. +5/5 muscle strength dorsiflexion, plantarflexion, inversion, eversion b/l Radiographs: 3 views left foot ordered August 01, 2020: I have personally reviewed and interpreted these XR myself: No acute findings ASSESSMENT: (M76.72) Peroneal tendinitis of left lower extremity (primary encounter diagnosis) (M21.41, M21.42) Pes planus of both feet PLAN: 1. History and physical examination performed. 2. XR reviewed with patient and interpreted today 3. Discussed probable etiology of left foot pain as peroneal tendonitis second to poorly supportive shoe gear. Recommend using lace up tennis shoes and otc inserts such as powerstep. 4. Offered powerstep inserts today but she declined 5. F/u prn Lazarus Stockton DPM Podiatry [address] [facility] [address] Dept: [phone] Dept [facility] Progress note 08-01-2020 Note Date & Type Note Facility 08-01-2020 Note HNO ID: [id number] Author: Vivian Daily Ma Service: ? Author Type: ? Type: Progress Notes Filed: 08/01/2020 12:04 PM Note Text: AMB ROOMING INTAKE FLOWSHEET DATA Patient presents with: Left Foot - New, Pain [facility] Progress note 08-01-2020 Note Date & Type Note Facility 08-01-2020 Note HNO ID: [id number] Author: RT Desire(R) Service: ? Author Type: Securities Attorney Type: Progress Notes Filed: 08/01/2020 11:21 AM Note Text: Radiology Service Progress Note PATIENT NAME: Adis Molina DATE OF SERVICE: August 01, 2020 TIME: 11:21 AM PATIENT IDENTITY VERIFICATION COMPLETED USING TWO (2) IDENTIFIERS: Name and Date of confirmed by patient verbally. FALL SCREENING: Has the patient had 2 falls in the last year or 1 fall with injury or currently using an Ambulatory Assistive Device (Walker, Cane, Wheelchair, Crutches, etc.)? No PATIENT GENDER DATA: Female. status: : No status: NO. PATIENT RELEVANT IMPLANT DATA REVIEWED: Not Applicable RADIOLOGY DEPARTMENT: General X-ray: Exam(s) Completed: Lower Extremity X-Ray(s): Foot, Left and Wt. Bearing PERIPHERAL IV DATA: Not applicable SIGNED BY: RT Desire(R) August 01, 2020 11:21 AM [facility] Evaluation note Note Date & Type Note Facility Evaluation note No assessment information [facility] Work Phone: Hospital course Narrative Note Date & Type Note Facility Hospital course Narrative No data available for this section [facility] Hospital Discharge instructions Note Date & Type Note Facility Hospital Discharge instructions No data available for this section [facility] Progress note Note Date & Type Note Facility Progress note No data available for this section [facility] Summary Purpose Family History No Family History Records FoundNo Family History Records FoundNo Family History Records FoundNo Family History Records Found No data available for this section No Family History Records Found Advance Directives No Advanced Directives Records FoundNo Advanced Directives Records FoundNo Advanced Directives Records FoundNo Advanced Directives Records FoundNo Advanced Directives Records Found Chief Complaint and Reason for Visit Chief Complaint SCREENING ABN MAMM LT BREAST Chief Complaint Central sleep apnea in conditions classified elsew Additional Source Comments INFORMATION SOURCE (unrecogn ized section and content) DATE CREATED AUTHOR 01/11/2020 [facility] DATE CREATED AUTHOR AUTHOR'S ORGANIZ ATION 01/11/2020 [facility] DATE CREATED AUTHOR AUTHOR'S ORGANIZ ATION 04/25/2021 [facility] DATE CREATED AUTHOR AUTHOR'S ORGANIZ ATION 11/09/2022 [facility] DATE CREATED AUTHOR AUTHOR'S ORGANIZ ATION 04/02/2023 [facility] ([place]) Goals (unrecognized section and content) Goals may be documented in a n alternate sectionGoals may be documented in an alternate sectionGoals may be documented in an alternate section No data available for this sectionGoals may be documented in an alternate section No data available for this section Care Team (unrecognized sect ion and content) Care Team Personnel Name: CYNDEE SRINIVASAN DO Member Role: Primary Care Physician Address: Address: [address] [place] [address] [place] [address]- Care Team Related Persons Name: MARY JANE MOLINA Address: [address] [id number] Care Teams (unrecognized sec tion and content) Team Status: Active Member Role Status Dates Dr. Cyndee Srinivasan DO Family Provider Active Dr. Cyndee Srinivasan DO Primary Care Provider Active Team Status: Active Member Role Status Dates Dr. Cyndee Srinivasan DO Primary Care Provider Active Dr. Azar Rayo MD Attending Provider Active Team Status: Inactive Member Role Status Dates Dr. Cyndee Srinivasan DO Primary Care Provider Active Dr. Jace Castillo MD Attending Provider, [facility] Provider Active FOR RECORDS PERTAINING TO PATIENTS WHO ARE OR HAVE BEEN ENROLLED IN A CHEMICAL DEPENDENCY/SUBSTANCEABUSE PROGRAM, SOME INFORMATION MAY BE OMITTED. This clinical summary was aggregated from multiple sources. Caution should be exercised in using it in the provision of clinical care. This summary normalizes information from multiple sources, and as a consequence, information in this document may materially change the coding, format and clinical context of patient data. In addition, data may be omitted in some cases. CLINICAL DECISIONS SHOULD BE BASED ON THE PRIMARY CLINICAL RECORDS. [facility] [employer] [facility]. provides no warranty or guarantee of the accuracy or completeness of information in this document.
== END | disposition home or self-care (01) ==
LOC: LABSPEC 13:16
PROVIDERS: PCP Family Medicine; Visit Provider Nurse Practitioner Family
DX: N39.0 Urinary tract infection, site not specified (principal)
CPT/HCPCS: 87086; 87088

== ENCOUNTER → 2024-12-24 | Outpatient (CLI) | payer OTHER, SELFPAY ==
--- OUTSIDE RECORDS SUMMARY | 2024-12-25 00:58 | XMS RPT_ITS | CCD ---
Author Organization [facility] Care Team Providers Care Bellows Charger Assembler Name Role Phone AQUILES VALENCIA Admitting Unavailable ERIKAQUILES ESPINOZA Attending Unavailable AQUILES VALENCIA Primary Care Unavailable DR CYNDEE SRINIVASAN DO Primary Care Physician Dr. Cyndee Srinivasan Primary Care Provider [phone] Dr. Azar Rayo Attending Provider NANETTE PATEL MD Attending Unavailable DR CYNDEE SRINIVASAN DO Primary Care Unavailable Cyndee Srinivasan Primary Care Unavailable Adamaris Gonzalez Attending Unavailable Medications Current Medications Medication Drug Class(es) Dates Sig (Normalized) Sig (Original) acetaminophen 325 mg / HYDROcodone bitartrate 5 mg oral tablet (1 source) Opioid Agonist Start: 07-14-2015 [place] 325- 5 mg oral tablet Dose = [...] Refill(s) Start Date: 07/05/15 Status: Ordered Problems Problem Classification Problem Date Documented Da te Episodic/Chronic Nutritional deficiencies (2 sources) Vitamin D deficiency 07-05-2015 Chronic Osteoarthritis (2 sources) Arthritis 07-05-2015 Chronic Comment on above: Left shoulder Other female genital disorders (2 sources) Dysplasia of cervix 07-05-2015 Episodic Comment on above: Moderate Other screening for suspected conditions (not mental disorders or infectious disease) (1 source) No current problems or disability; Translations: [No Chronic Problems] 02-14-2022 Episodic Residual codes; unclassified (1 source) 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 Comment on above: on CPAP Urinary tract infections (1 source) Urinary tract infection, site not specified; Translations: [Urinary tract infection, site not specified] Onset: 12-11-2024 Episodic Results Test Name Value Interpretation Reference Range Facil ity Urine Cultureon 12-06-2024 URC Below infection level. Mixed Gram Pos Gram Neg Org [place] Count 1000-10,000 MIXC Mixed contaminants. Submit a new specimen if indicated. Normal [facility] Comment on above: Performed By: #### M [id number] #### [facility] [address] [place], [address] MA MAMMOGRAM SCREENING BILAT ERAL W/TOMOon 03-30-2023 MA MAMMOGRAM SCREENING BILATERAL W/VICKY ORIGINAL FROM: [address] [place], [place] [address] PROCEDURE FOR: ADIS Norris TRACY [address] [place] [address] Home: PID#: [id number] Exam#: [id number] : 1960 Age: 63 TO: NANETTE PATEL MD [address] [facility] [address] [place], [place] [address] Fax: NO FAX EXAMINATION: SCREENING DIGITAL BILATERAL [...] addition to annual mammographic screening per the [employer]. BIRADS: MAMMOGRAM BI-RADS: 2: Benign finding RECALL: 1 year screening RECALL TYPE: mammo LETTER SENT: Normal BI-RADS 1 and 2 Interpreted by: Shawna An Preliminary Report By: Shawna An Electronically signed By Shawna An Dictated Date: 03/30/2023 10:20:37 AM Prelim Date: 03/30/2023 10:29:06 AM Sign Date: 03/30/2023 10:29:06 AM Ordering Provider: NANETTE PATEL Plastic Frame Inserter: CIERRA SARAVIA RT(R)(M)(CT) NEONATAL INTENSIVE CARE NURSE letter sent: Normal BI-RADS 1 and 2 Mammogram BI-RADS: 2 Benign Normal [facility] (MD) Absolute lymphocyte counton 01-19-2022 Lymphocytes Auto (Unsp spec) [#/Vol] 1.35 10*3/uL 0.83-4.51 [facility] Work Phone: Basophil percentageon 2021 Basophils/100 WBC (Bld) 1.0 % 0-1 [facility] Work Phone: Bilirubin [Mass/Vol] 0.80 mg/dL 0.20-1.00 [facility] Work Phone: Comment on above: For patients on eltr ombopag therapy, use of Dimension [place] TBIL is not recommended. Chloride [Moles/Vol] 106 mmol/L 98-107 [facility] Work Phone: Cholesterol [Mass/Vol] 185 mg/dL <200 [facility] Work Phone: Comment on above: <200 mg/dL Desirable 200-240 mg/dL Borderline >240 mg/dL High Risk Eosinophils/100 WBC (Bld) 2.9 % 0-5 [facility] Work Phone: Glucose [Mass/Vol] 97 mg/dL 74-106 [facility] Work Phone: Neutrophils (Bld) [#/Vol] 3.1 10*3/uL 2.0-7.7 [facility] Work Phone: Neutrophils/100 WBC (Bld) 60.7 % 47-70 [facility] Work Phone: Potassium [Moles/Vol] 3.9 mmol/L 3.5-5.1 [facility] Work Phone: Protein [Mass/Vol] 7.6 g/dL 6.4-8.2 [facility] Work Phone: Sodium [Moles/Vol] 137 mmol/L 136-145 [facility] Work Phone: Triglyceride [Mass/Vol] 76 mg/dL <199 [facility] Work Phone: Comment on above: The drugs N-Acetylcy steine and Metamizole may falsely depress this assay.Serum Triglycerides Reference Interval Normal <150 mg/dL Borderline high 150 - 199 mg/dL High 200 - 499 mg/dL Very High > or = 500 mg/dL WBC (Bld) [#/Vol] 5.2 10*3/uL 4.4-11.0 [facility] Work Phone: Blood erythrocytes count (nu mber/volume)on 01-19-2022 RBC (Bld) [#/Vol] 4.50 10*6/uL 4.2-5.4 [facility] Work Phone: Blood hemoglobin measurement (mass/volume)on 01-19-2022 Hemoglobin (Bld) [Mass/Vol] 10.9 g/dL 12.0-15.0 [facility] Work Phone: Blood lymphocytes/100 leukoc yteson 01-19-2022 Lymphocytes/100 WBC (Bld) 26.1 % 19-41 [facility] Work Phone: Blood monocytes/100 leukocyt eson 01-19-2022 Monocytes/100 WBC (Bld) 8.7 % 0-10 [facility] Work Phone: Blood platelet mean volumeon 01-19-2022 Platelet mean volume (Bld) [Entitic vol] 9.4 fL 6.2-12.0 [facility] Work Phone: Determination of erythrocyte mean corpuscular volume (MCV)on 01-19-2022 MCV (RBC) [Entitic vol] 78.2 fL 81-99 [facility] Work Phone: Erythrocyte sedimentation ra cody 01-19-2022 ESR (Bld) [Velocity] 41 mm/h 0-30 [facility] Work Phone: Hematocrit Auto (Bld) [Volum e fraction]on 01-19-2022 Hematocrit (Bld) [Volume fraction] 35.2 % 37-47 [facility] Work Phone: Iron measurement (mass/mass) on 01-19-2022 Iron (Unsp spec) [Mass/Mass] 28 ug/dL 50-170 [facility] Work Phone: Laboratory - Chemistry and C hemistry - challengeon 01-19-2022 ALP [Catalytic activity/Vol] 73 U/L 45-117 [facility] Work Phone: ALT [Catalytic activity/Vol] 22 U/L 13-56 [facility] Work Phone: CO2 [Moles/Vol] 25.0 mmol/L 21.0-32.0 [facility] Work Phone: Globulin (S) [Mass/Vol] 3.9 g/dL 2.2-4.2 [facility] Work Phone: Urea nitrogen/Creatinine [Mass ratio] 15.4 mg/mg 10-20 [facility] Work Phone: Laboratory - Hematology and Cell countson 01-19-2022 Erythrocyte distribution width (RBC) [Entitic vol] 50.1 fL 35.1-43.9 [facility] Work Phone: Erythrocyte distribution width (RBC) [Ratio] 17.6 % 11.6-14.6 [facility] Work Phone: Immature granulocytes/100 WBC (Bld) 0.600 % 0.0-0.9 [facility] Work Phone: Comment on above: IG% - Immature Granu locytes (promyelocytes, myelocytes and metamyelocytes) > 1% indicates that a LEFT SHIFT is Present. MCH (RBC) [Entitic mass] 24.2 pg 27.0-32.0 [facility] Work Phone: Nucleated RBC/100 WBC (Bld) [Ratio] 0 % 0-5 [facility] Work Phone: MCHC Auto (RBC) [Mass/Vol]on 01-19-2022 MCHC (RBC) [Mass/Vol] 31.0 g/dL 32-36 [facility] Work Phone: No Panel Informationon 01-19 Estimated GFR (MDRD) Amer 88 mL/min >60 [facility] Work Phone: Comment on above: GFR Calc Estimated GFR (MDRD) Non-Af Amer 73 mL/min >60 [facility] Work Phone: Comment on above: Non- GFR Calc Platelets bldon 01-19-2022 Platelets (Bld) [#/Vol] 304 10*3/uL 150-450 [facility] Work Phone: Serum or plasma C reactive p rotein measurement (mass/volume)on 01-19-2022 CRP [Mass/Vol] 6.53 mg/L 0.0-3.0 [facility] Work Phone: Comment on above: C-Reactive Protein ( CRP) provides useful information for thediagnosis, therapy and monitoring of inflammatory processesand associated diseases. For the evaluation of Relative Riskfor Cardiovascular Disease, a High Sensitivity CRP (HSCRP)should be ordered. Serum or plasma albumin ricky urement (mass/volume)on 01-19-2022 Albumin [Mass/Vol] 3.7 g/dL 3.2-5.0 [facility] Work Phone: Serum or plasma albumin/glob ulin mass ratioon 01-19-2022 Albumin/Globulin [Mass ratio] 0.9 {ratio} 0.9-2.4 [facility] Work Phone: Serum or plasma calcium ricky urement (mass/volume)on 01-19-2022 Calcium [Mass/Vol] 8.8 mg/dL 8.5-10.1 [facility] Work Phone: Serum or plasma cholesterol in HDL measurement (mass/volume)on 01-19-2022 Cholesterol in HDL [Mass/Vol] 41 mg/dL >40 [facility] Work Phone: Comment on above: The drugs N-Acetylcy steine and Metamizole may falsely depress this assay. Reference Range HDL <40 mg/dL Low HDL Cholesterol HDL >or= 60 mg/dL High HDL Cholesterol Serum or plasma cholesterol in VLDL measurement (mass/volume)on 01-19-2022 Cholesterol in VLDL [Mass/Vol] 15 mg/dL 5-40 [facility] Work Phone: Serum or plasma creatinine m easurement (mass/volume)on 01-19-2022 Creatinine [Mass/Vol] 0.84 mg/dL 0.55-1.02 [facility] Work Phone: Comment on above: The validity of the calculated GFR & GFRAA in patients over 70 years has not been determined. Clinical correlation is essential. Serum or plasma ferritin moise surement (mass/volume)on 01-19-2022 Ferritin [Mass/Vol] 10 ng/mL 8-252 [facility] Work Phone: Serum or plasma low density lipoprotein (LDL) cholesterol measurement (mass/volume)on 01-19-2022 Cholesterol in LDL [Mass/Vol] 129 mg/dL 0-130 [facility] Work Phone: Serum or plasma urea nitroge n measurement (mass/volume)on 01-19-2022 Urea nitrogen [Mass/Vol] 13 mg/dL 7-18 [facility] Work Phone: Thin prep Papanicolaou smear with manual screeningon 01-19-2022 Thin prep Papanicolaou smear with manual screening 16 U/L 15-37 [facility] Work Phone: Thin prep Papanicolaou smear with manual screening 6 5-15 [facility] Work Phone: CNOVon 08-01-2020 CNOV Office Visit (PODIWS ) ADIS MOLINA ([id number]) 1960 F Date Time Provider Department 08/01/20 11:30 AM SANDEEBING LAZARUS ENG During your visit today, we recorded the following information about you: Vivian Daily Alejo 08/01/2020 12:04 PM Signed AMB ROOMING INTAKE FLOWSHEET DATA Patient presents with: Left Foot - New, Pain Lazarus OgdenHAMZAH 08/01/2020 12:04 PM Signed Initial Podiatric Office [...] but she declined 5. F/u prn Lazarus Ogden DPM Podiatry [address] [facility] [address] Dept: [phone] Dept Referring Provider: SELF [200] Allergies As of Date: 08/01/2020 (No Known Allergies) Date Reviewed: 08/01/2020 Reviewed by: Vivian Daily Ma - Fully Assessed Reason for Visit: New [674631] Pain [78] Primary Visit Diagnosis:Peroneal tendinitis of left lower extremity [M76.72] Other Visit Diagnosis:Pes planus of both feet [M21.41, M21.42] Problem List As Of Date: 08/01/2020 (more content not included)... Normal [facility] XR FOOT 3V AP/LAT/OBL LTon [...] of acute osseous injury. 2. Calcaneal enthesophytes. Grain Grader: FABIEN Transcribe Date/Time: Aug 01 2020 11:35A Dictated by : DARSHANA RUSS MD This examination was interpreted and the report reviewed and electronically signed by: DARSHANA RUSS MD on Aug 01 2020 12:02PM EST [id number] Normal [facility] CORONAVIRUS PCR [CCL]on 12-23 COVID 19 Result SECURITY OPERATIONS MANAGER Negative Normal [facility] Comment on above: Result Comment: Nega tive for COVID19 (SARS CoV2) by PCR. This test was developed and its performance characteristics determined by [facility] [place]. This test has been authorized by FDA under an Emergency Use Authorization (EUA). This test has been validated in accordance with the FDA's Guidance Document Policy for Diagnostics Testing in Laboratories Certified to Perform High Complexity Testing under CLIA prior to Emergency use Authorization for Coronavirus Disease 2019 during the Public Health Emergency issued on May 23, 2019. [facility] [address] [place] [address] Buster Blackburn III, M.D. [id number] Performed By: #### 2 [id number] #### [facility],[address] [place] [address] COVID 19 Source SECURITY OPERATIONS MANAGER Nasopharyngeal Swab Normal [facility] Comment on above: Result Comment: Marisela ected on 01/10 AT 0701: Previously reported as U Performed By: #### [id number] #### [facility],[address] [place] [address] Coronavirus 2019on 0 COVID 19 Result SECURITY OPERATIONS MANAGER Normal Negative for COVID19 (SARS CoV2) by PCR. [facility] Comment on above: Result Comment: Nega tive for This test was developed and its performance characteristics determined by [facility] [place]. This test has been authorized by FDA [...] developed and its performance characteristics determined by [facility] [place]. This test has been authorized by FDA [...] developed and its performance characteristics determined by [facility] [place]. This test has been authorized by FDA under an Emergency Use Authorization (EUA). This test has been validated in accordance with the FDA's Guidance Document Policy for Diagnostics Testing in Laboratories Certified to Perform High Complexity Testing under CLIA prior to Emergency use Authorization for Coronavirus Disease 2019 during the Public Health Emergency issued on May 23, 2019. COVID 19 Source SECURITY OPERATIONS MANAGER Normal [facility] Comment on above: Result Comment: Naso pharyngeal Corrected on 01/10 AT 0701: Previously reported as U Swab Corrected on 01/10 AT 0701: Previously reported as U Encounters Encounter Date Encounter Type Care Provider Facility Start: 12-04-2024 End: 12-04-2024 ambulatory Cyndee Srinivasan Facility:[facility] Start: 03-29-2023 End: 03-30-2023 ambulatory NANETTE PATEL MD Facility: Start: 03-29-2023 End: 03-29-2023 Patient encounter procedure NANETTE PATEL MD [facility] Start: 10-30-2022 Non-patient / Non-visit Dr. Beronica Srinivasan Work Phone: [facility] Start: 10-30-2022 End: 10-30-[address] Cyndee Srinivasan Work Phone: [facility] Work Phone: Start: 10-30-2022 End: 10-30-[address] Cyndee Srinivasan Work Phone: [facility] Work Phone: Start: 02-14-2022 End: 02-18-2022 Outreach Lab NANETTE PATEL MD [facility] Start: 01-26-2022 End: 01-26-2022 ambulatory [facility] Work Phone: Start: 01-26-2022 End: 01-26-2022 Patient encounter procedure [facility] Start: 01-22-2022 End: 01-22-2022 ambulatory [facility] Work Phone: Start: 01-22-2022 End: 01-22-2022 Patient encounter procedure [facility] Start: 01-19-2022 End: 01-19-2022 ambulatory [facility] Work Phone: Start: 01-19-2022 End: 01-19-2022 Patient encounter procedure [facility] Start: 01-08-2020 End: 01-08-2020 Patient encounter procedure AQUILES VALENCIA [facility] Procedures Date Procedure Procedure Detail Performing Clinician Start: 01-26-2022 Ultrasonography of breast Start: 01-22-2022 Screening mammography Start: 10-11-2009 Hysteroscopy NANETTE BUTLER MD Comment on above: D&C Dilation and curettage PANKAJ PATEL MD Loop electrosurgical excision procedure of cervix NANETTE PATEL MD Plan of Treatment Date Care Activity Detail Author Start: 01-26-2022 Ultrasonography of breast Breast Limited Unilateral [facility] Work Phone: Start: 01-26-2022 US Breast limited [facility] Work Phone: Payers Date Payer Category Payer Self-pay [id number] 2024 Unknown [id number] 2023 Unknown [id number] 1960 Unknown [id number] 1960 Unknown [id number] Unknown [id number] Unknown [id number] Social History Date Type Detail Facility Tobacco smoking stat [facility] Unknown if ever smoked [facility] Work Phone: Start: 1960 Sex Assigned At Female [facility] Start: 02-14-2022 Tobacco smoking status Never s moked tobacco (finding) [facility] Evaluation + Plan note 02-14-2022 Laboratory Note Date & Type Note Facility 02-14-2022 Evaluation + Plan note Future Scheduled TestsPathology Erp Engineer Request 02/14/22 [facility] Deni Progress note 08-01-2020 Note Date & Type Note Facility 08-01-2020 Note HNO ID: [id number] Author: Lazarus Ogden Service: ? Author Type: Physician Type: Progress [...] but she declined 5. F/u prn Lazarus Ogden DPM Podiatry [address] [facility] [address] Dept: [phone] Dept [facility] Progress note 08-01-2020 Note Date & Type Note Facility 08-01-2020 Note HNO ID: [id number] Author: Vivian Daily Ma Service: ? Author Type: ? Type: Progress Notes Filed: 08/01/2020 12:04 PM Note Text: AMB ROOMING INTAKE FLOWSHEET DATA Patient presents with: Left Foot - New, Pain [facility] Progress note 08-01-2020 Note Date & Type Note Facility 08-01-2020 Note HNO ID: [id number] Author: RT Desire(R) Service: ? Author Type: Cradle Slide Maker Type: Progress Notes Filed: 08/01/2020 11:21 AM [...] RT Desire(R) August 01, 2020 11:21 AM [facility] Evaluation note Note Date & Type Note Facility Evaluation note [facility] course Narrative Note Date & Type Note Facility Hospital course Narrative No data available for this section [facility] Hospital Discharge instructions Note Date & Type Note Facility Hospital Discharge instructions No data available for this section [facility] Progress note Note Date & Type Note Facility Progress note No data available for this section [facility] Summary Purpose Family History No Family History Records FoundNo Family History Records FoundNo Family History Records Found No data available for this section No Family History Records FoundNo Family History Records Found Advance Directives No Advanced Directives Records FoundNo Advanced Directives Records FoundNo Advanced Directives Records FoundNo Advanced Directives Records FoundNo Advanced Directives Records Found Chief Complaint and Reason for Visit Chief Complaint SCREENING ABN MAMM LT BREAST Chief Complaint Central sleep apnea in conditions classified elsew Additional Source Comments INFORMATION SOURCE (unrecogn ized section and content) DATE CREATED AUTHOR 01/11/2020 [facility] DATE CREATED AUTHOR AUTHOR'S ORGANIZ ATION 01/11/2020 [facility] DATE CREATED AUTHOR AUTHOR'S ORGANIZ ATION 04/25/2021 [facility] DATE CREATED AUTHOR AUTHOR'S ORGANIZ ATION 04/02/2023 [facility] DATE CREATED AUTHOR AUTHOR'S ORGANIZ ATION 12/12/2024 [facility] Goals (unrecognized section and content) Goals may [...] Member Role: Primary Care Physician Address: Address: [address] [place] [address] [place] [address]- Care Team Related Persons Name: MARY JANE MOLINA Address: [address] [id number] [place] Care Teams (unrecognized sec tion and content) [...] Active Dr. Jace Castillo MD Attending Provider, [facility] Provider Active FOR RECORDS PERTAINING TO PATIENTS [...] BE BASED ON THE PRIMARY CLINICAL RECORDS. [employer] [facility]. provides no warranty or guarantee of the accuracy or completeness of information in this document.
--- OUTSIDE RECORDS SUMMARY | 2024-12-25 00:58 | XMS RPT_ITS | CCD ---
Author Organization [facility] Care Team Providers Care Employee Relation Manager Name Role Phone AQUILES VALENCIA Admitting Unavailable ERIKAQUILES ESPINOZA Attending Unavailable AQUILES VALENCIA Primary Care Unavailable DR CYNDEE SRINIVASAN DO Primary Care Physician Dr. Cyndee Srinivasan Primary Care Provider Dr. Azar Rayo Attending Provider NANETTE PATEL MD Attending Unavailable DR CYNDEE SRINIVASAN DO Primary Care Unavailable Cyndee Srinivasan Primary Care Unavailable Adamaris Gonzalez Attending Unavailable Medications Current Medications Medication Drug Class(es) Dates Sig (Normalized) Sig (Original) acetaminophen 325 mg / HYDROcodone bitartrate 5 mg oral tablet (1 source) Opioid Agonist Start: 07-14-2015 [place] 325- 5 mg oral tablet Dose = [...] level. Mixed Gram Pos Gram Neg Org [place] Count 1000-10,000 MIXC Mixed contaminants. Submit a new specimen if indicated. Normal [facility] Comment on above: Performed By: #### M [id number] #### [facility] [address] [place], [address] MA MAMMOGRAM SCREENING BILAT ERAL W/TOMOon 03-30-2023 MA MAMMOGRAM SCREENING BILATERAL W/VICKY ORIGINAL FROM: [address] [place], [place] [address] PROCEDURE FOR: ADIS Norris [address] [address] Home: PID#: [id number] Exam#: [id number] : 1960 Age: 63 TO: NANETTE PATEL MD [address] [facility] [place], [place] [address] Fax: NO FAX EXAMINATION: SCREENING DIGITAL BILATERAL [...] addition to annual mammographic screening per the [employer]. BIRADS: MAMMOGRAM BI-RADS: 2: Benign finding RECALL: 1 year screening RECALL TYPE: mammo LETTER SENT: Normal BI-RADS 1 and 2 Interpreted by: Shawna An Preliminary Report By: Shawna An Electronically signed By Shawna An Dictated Date: 03/30/2023 10:20:37 AM Prelim Date: 03/30/2023 10:29:06 AM Sign Date: 03/30/2023 10:29:06 AM Ordering Provider: NANETTE PATEL Cad Cam Programmer: CIERRA SARAVIA RT(R)(M)(CT) LEGAL RECOVERY SPECIALIST letter sent: Normal BI-RADS 1 and 2 Mammogram BI-RADS: 2 Benign Normal [facility] ([place]) Absolute lymphocyte counton 01-19-2022 Lymphocytes Auto (Unsp spec) [#/Vol] 1.35 10*3/uL 0.83-4.51 [facility] Work Phone: Basophil percentageon 2021 Basophils/100 WBC (Bld) 1.0 % 0-1 [facility] Work Phone: Bilirubin [Mass/Vol] 0.80 mg/dL 0.20-1.00 [facility] Work Phone: Comment on above: For patients on eltr ombopag therapy, use of Dimension Carlotta TBIL is not recommended. Chloride [Moles/Vol] 106 mmol/L 98-107 [facility] Work Phone: Cholesterol [Mass/Vol] 185 mg/dL <200 [facility] Work Phone: Comment on above: <200 mg/dL Desirable 200-240 mg/dL Borderline >240 mg/dL High Risk Eosinophils/100 WBC (Bld) 2.9 % 0-5 [facility] Work Phone: Glucose [Mass/Vol] 97 mg/dL 74-106 [facility] Work Phone: Neutrophils (Bld) [#/Vol] 3.1 10*3/uL 2.0-7.7 [facility] Work Phone: Neutrophils/100 WBC (Bld) 60.7 % 47-70 [facility] Work Phone: Potassium [Moles/Vol] 3.9 mmol/L 3.5-5.1 [facility] Work Phone: Protein [Mass/Vol] 7.6 g/dL 6.4-8.2 [facility] Work Phone: Sodium [Moles/Vol] 137 mmol/L 136-145 [facility] Work Phone: Triglyceride [Mass/Vol] 76 mg/dL <199 [facility] Work Phone: Comment on above: The drugs N-Acetylcy steine and Metamizole may falsely depress this assay.Serum Triglycerides Reference Interval Normal <150 mg/dL Borderline high 150 - 199 mg/dL High 200 - 499 mg/dL Very High > or = 500 mg/dL WBC (Bld) [#/Vol] 5.2 10*3/uL 4.4-11.0 [facility] Work Phone: Blood erythrocytes count (nu mber/volume)on 01-19-2022 RBC (Bld) [#/Vol] 4.50 10*6/uL 4.2-5.4 [facility] Work Phone: Blood hemoglobin measurement (mass/volume)on 01-19-2022 Hemoglobin (Bld) [Mass/Vol] 10.9 g/dL 12.0-15.0 [facility] Work Phone: Blood lymphocytes/100 leukoc yteson 01-19-2022 Lymphocytes/100 WBC (Bld) 26.1 % 19-41 [facility] Work Phone: Blood monocytes/100 leukocyt eson 01-19-2022 Monocytes/100 WBC (Bld) 8.7 % 0-10 [facility] Work Phone: Blood platelet mean volumeon 01-19-2022 Platelet mean volume (Bld) [Entitic vol] 9.4 fL 6.2-12.0 [facility] Work Phone: Determination of erythrocyte mean corpuscular volume (MCV)on 01-19-2022 MCV (RBC) [Entitic vol] 78.2 fL 81-99 [facility] Work Phone: Erythrocyte sedimentation ra cody 01-19-2022 ESR (Bld) [Velocity] 41 mm/h 0-30 [facility] Work Phone: Hematocrit Auto (Bld) [Volum e fraction]on 01-19-2022 Hematocrit (Bld) [Volume fraction] 35.2 % 37-47 [facility] Work Phone: Iron measurement (mass/mass) on 01-19-2022 Iron (Unsp spec) [Mass/Mass] 28 ug/dL 50-170 [facility] Work Phone: Laboratory - Chemistry and C hemistry - challengeon 01-19-2022 ALP [Catalytic activity/Vol] 73 U/L 45-117 [facility] Work Phone: ALT [Catalytic activity/Vol] 22 U/L 13-56 [facility] Work Phone: CO2 [Moles/Vol] 25.0 mmol/L 21.0-32.0 [facility] Work Phone: Globulin (S) [Mass/Vol] 3.9 g/dL 2.2-4.2 [facility] Work Phone: Urea nitrogen/Creatinine [Mass ratio] 15.4 mg/mg 10-20 [facility] Work Phone: Laboratory - Hematology and Cell countson 01-19-2022 Erythrocyte distribution width (RBC) [Entitic vol] 50.1 fL 35.1-43.9 [facility] Work Phone: Erythrocyte distribution width (RBC) [Ratio] 17.6 % 11.6-14.6 [facility] Work Phone: Immature granulocytes/100 WBC (Bld) 0.600 % 0.0-0.9 [facility] Work Phone: Comment on above: IG% - Immature Granu locytes (promyelocytes, myelocytes and metamyelocytes) > 1% indicates that a LEFT SHIFT is Present. MCH (RBC) [Entitic mass] 24.2 pg 27.0-32.0 [facility] Work Phone: Nucleated RBC/100 WBC (Bld) [Ratio] 0 % 0-5 [facility] Work Phone: MCHC Auto (RBC) [Mass/Vol]on 01-19-2022 MCHC (RBC) [Mass/Vol] 31.0 g/dL 32-36 [facility] Work Phone: No Panel Informationon 01-19 Estimated GFR (MDRD) Amer 88 mL/min >60 [facility] Work Phone: Comment on above: GFR Calc Estimated GFR (MDRD) Non-Af Amer 73 mL/min >60 [facility] Work Phone: Comment on above: Non- GFR Calc Platelets bldon 01-19-2022 Platelets (Bld) [#/Vol] 304 10*3/uL 150-450 [facility] Work Phone: Serum or plasma C reactive p rotein measurement (mass/volume)on 01-19-2022 CRP [Mass/Vol] 6.53 mg/L 0.0-3.0 [facility] Work Phone: Comment on above: C-Reactive Protein ( CRP) provides useful information for thediagnosis, therapy and monitoring of inflammatory processesand associated diseases. For the evaluation of Relative Riskfor Cardiovascular Disease, a High Sensitivity CRP (HSCRP)should be ordered. Serum or plasma albumin ricky urement (mass/volume)on 01-19-2022 Albumin [Mass/Vol] 3.7 g/dL 3.2-5.0 [facility] Work Phone: Serum or plasma albumin/glob ulin mass ratioon 01-19-2022 Albumin/Globulin [Mass ratio] 0.9 {ratio} 0.9-2.4 [facility] Work Phone: Serum or plasma calcium ricky urement (mass/volume)on 01-19-2022 Calcium [Mass/Vol] 8.8 mg/dL 8.5-10.1 [facility] Work Phone: Serum or plasma cholesterol in HDL measurement (mass/volume)on 01-19-2022 Cholesterol in HDL [Mass/Vol] 41 mg/dL >40 [facility] Work Phone: Comment on above: The drugs N-Acetylcy steine and Metamizole may falsely depress this assay. Reference Range HDL <40 mg/dL Low HDL Cholesterol HDL >or= 60 mg/dL High HDL Cholesterol Serum or plasma cholesterol in VLDL measurement (mass/volume)on 01-19-2022 Cholesterol in VLDL [Mass/Vol] 15 mg/dL 5-40 [facility] Work Phone: Serum or plasma creatinine m easurement (mass/volume)on 01-19-2022 Creatinine [Mass/Vol] 0.84 mg/dL 0.55-1.02 [facility] Work Phone: Comment on above: The validity of the calculated GFR & GFRAA in patients over 70 years has not been determined. Clinical correlation is essential. Serum or plasma ferritin moise surement (mass/volume)on 01-19-2022 Ferritin [Mass/Vol] 10 ng/mL 8-252 [facility] Work Phone: Serum or plasma low density lipoprotein (LDL) cholesterol measurement (mass/volume)on 01-19-2022 Cholesterol in LDL [Mass/Vol] 129 mg/dL 0-130 [facility] Work Phone: Serum or plasma urea nitroge n measurement (mass/volume)on 01-19-2022 Urea nitrogen [Mass/Vol] 13 mg/dL 7-18 [facility] Work Phone: Thin prep Papanicolaou smear with manual screeningon 01-19-2022 Thin prep Papanicolaou smear with manual screening 16 U/L 15-37 [facility] Work Phone: Thin prep Papanicolaou smear with manual screening 6 5-15 [facility] Work Phone: CNOVon 08-01-2020 CNOV Office Visit (PODIWS ) ADIS MOLINA ([id number]) 1960 F Date Time Provider Department 08/01/20 [...] Ogden DPM Podiatry [address] [facility] [address] Dept: [phone] Dept Referring Provider: SELF [200] Allergies As of Date: 08/01/2020 (No Known Allergies) Date Reviewed: 08/01/2020 Reviewed by: Vivian Daily Ma - Fully Assessed Reason for Visit: New [283769] Pain [78] Primary Visit Diagnosis:Peroneal tendinitis of left lower extremity [M76.72] Other Visit Diagnosis:Pes planus of both feet [M21.41, M21.42] Problem List As Of Date: 08/01/2020 (more content not included)... Normal [facility] XR FOOT 3V AP/LAT/OBL LTon 0 08-01-2020 [...] of acute osseous injury. 2. Calcaneal enthesophytes. Technical Solutions Engineer: FABIEN Transcribe Date/Time: Aug 01 2020 11:35A Dictated by : DARSHANA RUSS MD This examination was interpreted and the report reviewed and electronically signed by: DARSHANA RUSS MD on Aug 01 2020 12:02PM EST [id number] Normal [facility] CORONAVIRUS PCR [CCL]on 12-23 COVID 19 Result BLOCK ENGRAVER Negative Normal [facility] Comment on above: Result Comment: Nega tive for COVID19 (SARS CoV2) by PCR. This test was developed and its performance characteristics determined by [facility] [place]. This test has been authorized by FDA under an Emergency Use Authorization (EUA). This test has been validated in accordance with the FDA's Guidance Document Policy for Diagnostics Testing in Laboratories Certified to Perform High Complexity Testing under CLIA prior to Emergency use Authorization for Coronavirus Disease 2019 during the Public Health Emergency issued on May 23, 2019. [facility] [address] [place] [address] Buster Blackburn III, M.D. [id number] Performed By: #### [id number] #### [facility],[address] [place] [address] COVID 19 Source BLOCK ENGRAVER Nasopharyngeal Swab Normal [facility] Comment on above: Result Comment: Marisela ected on 01/10 AT 0701: Previously reported as U Performed By: #### [id number] #### [facility],[address] [place] [address] Coronavirus 2019on 0 COVID 19 Result BLOCK ENGRAVER Normal Negative for COVID19 (SARS CoV2) by PCR. [facility] Comment on above: Result Comment: Nega tive for This test was developed and its performance characteristics determined by [facility]'s [facility] [place]. This test has been authorized by FDA [...] developed and its performance characteristics determined by [facility] [place]. This test has been authorized by FDA [...] developed and its performance characteristics determined by [facility] [place]. This test has been authorized by FDA under an Emergency Use Authorization (EUA). This test has been validated in accordance with the FDA's Guidance Document Policy for Diagnostics Testing in Laboratories Certified to Perform High Complexity Testing under CLIA prior to Emergency use Authorization for Coronavirus Disease 2019 during the Public Health Emergency issued on May 23, 2019. COVID 19 Source BLOCK ENGRAVER Normal [facility] Comment on above: Result Comment: Naso pharyngeal Corrected on 01/10 AT 0701: Previously reported as U Swab Corrected on 01/10 AT 0701: Previously reported as U Encounters Encounter Date Encounter Type Care Provider Facility Start: 12-04-2024 End: 12-04-2024 ambulatory Cyndee Srinivasan Facility:[facility] Start: 03-29-2023 End: 03-30-2023 ambulatory NANETTE PATEL MD Facility: Start: 03-29-2023 End: 03-29-2023 Patient encounter procedure NANETTE PATEL MD [facility] Start: 10-30-2022 Non-patient / Non-visit Dr. Beronica Srinivasan Work Phone: [facility] Start: 10-30-2022 End: 10-30-[address] Cyndee Srinivasan Work Phone: [facility] Work Phone: Start: 10-30-2022 End: 10-30-[address] Cyndee Srinivasan Work Phone: [facility] Work Phone: Start: 02-14-2022 End: 02-18-2022 Outreach Lab NANETTE PATEL MD [facility] Start: 01-26-2022 End: 01-26-2022 ambulatory [facility] Work Phone: Start: 01-26-2022 End: 01-26-2022 Patient encounter procedure [facility] Start: 01-22-2022 End: 01-22-2022 ambulatory [facility] Work Phone: Start: 01-22-2022 End: 01-22-2022 Patient encounter procedure [facility] Start: 01-19-2022 End: 01-19-2022 ambulatory [facility] Work Phone: Start: 01-19-2022 End: 01-19-2022 Patient encounter procedure [facility] Start: 01-08-2020 End: 01-08-2020 Patient encounter procedure AQUILES VALENCIA [facility] Procedures Date Procedure Procedure Detail Performing Clinician Start: 01-26-2022 Ultrasonography of breast Start: 01-22-2022 Screening mammography Start: 10-11-2009 Hysteroscopy NANETTE BUTLER MD Comment on above: D&C Dilation and curettage PANKAJ PATEL MD Loop electrosurgical excision procedure of cervix NANETTE PATEL MD Plan of Treatment Date Care Activity Detail Author Start: 01-26-2022 Ultrasonography of breast Breast Limited Unilateral [facility] Work Phone: Start: 01-26-2022 US Breast limited [facility] Work Phone: Payers Date Payer Category Payer Self-pay [id number] 2024 Unknown [id number] 2023 Unknown [id number] 1960 Unknown [id number] 1960 Unknown [id number] Unknown [id number] Unknown [id number] Social History Date Type Detail Facility Tobacco smoking stat [facility] Unknown if ever smoked [facility] Work Phone: Start: 1960 Sex Assigned At Female A [facility] Start: 02-14-2022 Tobacco smoking status Never s moked tobacco (finding) [facility] Evaluation + Plan note 02-14-2022 Laboratory Note Date & Type Note Facility 02-14-2022 Evaluation + Plan note Future Scheduled TestsPathology Computational Physicist Request 02/14/22 [facility] Deni Progress note 08-01-2020 Note Date & Type Note Facility 08-01-2020 Note HNO ID: [id number] Author: Lazarus Ogden Service: ? Author Type: [...] Ogden DPM Podiatry [address] [facility] [address] Dept: [phone] [facility] Progress note 08-01-2020 Note Date & Type Note Facility 08-01-2020 Note HNO ID: [id number] Author: Vivian Daily Ma Service: ? Author Type: ? Type: Progress Notes Filed: 08/01/2020 12:04 PM Note Text: AMB ROOMING INTAKE FLOWSHEET DATA Patient presents with: Left Foot - New, Pain [facility] Progress note 08-01-2020 Note Date & Type Note Facility 08-01-2020 Note HNO ID: [id number] Author: RT Desire(R) Service: ? Author Type: Miter Cutter Type: Progress Notes Filed: 08/01/2020 11:21 AM [...] RT Desire(R) August 01, 2020 11:[address] [facility] Evaluation note Note Date & Type Note Facility [facility] Hospital course Narrative Note Date & Type Note Facility Hospital course Narrative No data available for this section [facility] Hospital Discharge instructions Note Date & Type Note Facility Hospital Discharge instructions No data available for this section [facility] Progress note Note Date & Type Note Facility Progress note No data available for this section [facility] Summary Purpose Family History No [...] section and content) DATE CREATED AUTHOR 01/11/2020 [facility] DATE CREATED AUTHOR AUTHOR'S ORGANIZ ATION 01/11/2020 [facility] DATE CREATED AUTHOR AUTHOR'S ORGANIZ ATION 04/25/2021 [facility] DATE CREATED AUTHOR AUTHOR'S ORGANIZ ATION 04/02/2023 [facility] DATE CREATED AUTHOR AUTHOR'S ORGANIZ ATION 12/12/2024 [facility] Goals (unrecognized section and content) [...] Member Role: Primary Care Physician Address: Address: [address] [place] [address] [place] [address]- Care Team Related Persons Name: MARY JANE MOLINA Address: [address] [phone] [place] Care Teams (unrecognized sec tion and [...] Active Dr. Jace Castillo MD Attending Provider, [facility] Provider Active FOR RECORDS PERTAINING TO [...] BE BASED ON THE PRIMARY CLINICAL RECORDS. [employer] [facility]. provides no warranty or guarantee of the accuracy or completeness of information in this document.
== END | disposition home or self-care (01) ==
LOC: LABSPEC 21:35
PROVIDERS: PCP Family Medicine; Visit Provider Nurse Practitioner Family
DX: R30.0 Dysuria (principal)
CPT/HCPCS: 87086; 87088

== ENCOUNTER → 2025-01-20 | Outpatient (CLI) | payer MEDICARE, SELFPAY ==
[2025-01-20 09:17] LABS: Hematocrit 40.8 % (37-47); Hemoglobin 13.1 g/dL (12.0-15.0); Immature Granulocytes Count 0.030 X10^3/uL (0.0-0.0); Mean Corp Hgb Conc 32.1 g/dL (32-36); Mean Corpuscular Volume 84.8 fL (81-99); Mean Platelet Vol. 9.0 fl (6.2-12.0); NRBC Flagged by Analyzer 0 % (0-5); Platelet Count 291 K/mm3 (150-450); RBC Distribution Width CV 14.8 % (11.6-14.6); RBC Distribution Width SD 45.5 fl (35.1-43.9); Red Blood Count 4.81 M/mm3 (4.2-5.4); White Blood Count 5.0 K/mm3 (4.4-11.0)
--- OUTSIDE RECORDS SUMMARY | 2025-01-20 10:09 | XMS RPT_ITS | CCD ---
Author Organization [facility] Inform ion Partnership [facility] Care Team Providers Care Senior Adults Director Name Role Phone ERIKAQUILES Admitting Unavailable ERIKAQUILES RONQUILLO Attending Unavailable AQUILES VALENCIA Primary Care Unavailable DR CYNDEE SRINIVASAN DO Primary Care Physician Dr. Cyndee Srinivasan Primary Care Provider [phone] Dr. Azar Rayo Attending Provider NANETTE PATEL MD Attending Unavailable DR CYNDEE SRINIVASAN DO Primary Care Unavailable Zarina STRATTON, Dr. Cotter Primary Care Physician Carlos CORPORATE SECURITY OFFICER-CAdamaris Attending Physician Cyndee Srinivasan Primary Care Unavailable Adamaris Gonzalez Attending Unavailable Cyndee Srinivasan Primary Care Unavailable Adamaris Gonzalez Attending Unavailable Medications Current Medications Medication Drug Class(es) Dates Sig (Normalized) Sig (Original) acetaminophen 325 mg / HYDROcodone bitartrate 5 mg oral tablet (1 source) Opioid Agonist Start: 07-14-2015 [place] 325- 5 mg oral tablet Dose = [...] Classification Problem Date Documented Da te Episodic/Chronic Genitourinary symptoms and ill-defined conditions (1 source) Dysuria; Translations: [Dysuria] Onset: 01-15-2025 Episodic Nutritional deficiencies (2 sources) Vitamin D deficiency [...] Results Test Name Value Interpretation Reference Range Facility Urine Cultureon 12-27-2024 [facility] Below infection level. Mixed Gram Positive Organisms [place] Count 1000-10,000 MIXC Mixed contaminants. Submit a new specimen if indicated. Normal [facility] Comment on above: Performed By: #### M [id number] #### [facility] [address] [place], [address] Urine Cultureon 12-06-2024 U[facility] Below infection level. Mixed Gram Pos Gram Neg Org [place] Count 1000-10,000 MIXC Mixed contaminants. Submit a new specimen if indicated. Normal [facility] Comment on above: Performed By: #### M [id number] #### [facility] [address] [place], [address] Urine cultureOrdered By: Dana Gonzalez on 12-04-2024 Bacteria identified Cx Nom (U) Mixed Gram Pos & Gram Neg Org Abnormal [facility] MA MAMMOGRAM SCREENING BILAT ERAL W/TOMOon 03-30-2023 MA MAMMOGRAM SCREENING BILATERAL W/VICKY ORIGINAL FROM: [place] [address] PROCEDURE FOR: [place] [address] Home: PID#: [id number] Exam#: [id number] : 1960 Age: 63 TO: NANETTE PATEL MD [address] [facility] [address] [place] [address] Fax: NO FAX EXAMINATION: SCREENING DIGITAL BILATERAL [...] addition to annual mammographic screening per the [employer]. BIRADS: MAMMOGRAM BI-RADS: 2: Benign finding RECALL: 1 year screening RECALL TYPE: mammo LETTER SENT: Normal BI-RADS 1 and 2 Interpreted by: Shawna An Preliminary Report By: Shawna An Electronically signed By Shawna An Dictated Date: 03/30/2023 10:20:37 AM Prelim Date: 03/30/2023 10:29:06 AM Sign Date: 03/30/2023 10:29:06 AM Ordering Provider: NANETTE PATEL Glass Novelty Maker: CIERRA SARAVIA RT(R)(M)(CT) BRASS MOLDER letter sent: Normal BI-RADS 1 and 2 Mammogram BI-RADS: 2 Benign Normal [facility] ([place]) Absolute lymphocyte counton 01-19-2022 Lymphocytes Auto (Unsp spec) [#/Vol] 1.35 10*3/uL 0.83-4.[address] [facility] Work Phone: Basophil percentageon 2021 Basophils/100 WBC (Bld) 1.0 % 0-[address] [facility] Work Phone: Bilirubin [Mass/Vol] 0.80 mg/dL 0.20-1.00 [facility] Work Phone: Comment on above: For patients on eltr ombopag therapy, use of Dimension [place] TBIL is not recommended. Chloride [Moles/Vol] 106 mmol/L 98-107 [facility] Work Phone: Cholesterol [Mass/Vol] 185 mg/dL <[address] [facility] Work Phone: Comment on above: <200 mg/dL Desirable 200-240 mg/dL Borderline >240 mg/dL High Risk Eosinophils/100 WBC (Bld) 2.9 % 0-[address] [facility] Work Phone: Glucose [Mass/Vol] 97 mg/dL 74-106 [facility] Work Phone: Neutrophils (Bld) [#/Vol] 3.1 10*3/uL 2.0-7.[address] [facility] Work Phone: Neutrophils/100 WBC (Bld) 60.7 % 47-[address] [facility] Work Phone: Potassium [Moles/Vol] 3.9 mmol/L 3.5-5.[address] [facility] Work Phone: Protein [Mass/Vol] 7.6 g/dL 6.4-8.2 [facility] Work Phone: Sodium [Moles/Vol] 137 mmol/L 136-145 [facility] Work Phone: Triglyceride [Mass/Vol] 76 mg/dL <[address] [facility] Work Phone: Comment on above: The drugs N-Acetylcy steine and Metamizole may falsely depress this assay.Serum Triglycerides Reference Interval Normal <150 mg/dL Borderline high 150 - 199 mg/dL High 200 - 499 mg/dL Very High > or = 500 mg/dL WBC (Bld) [#/Vol] 5.2 10*3/uL 4.4-11.0 [facility] Work Phone: Blood erythrocytes count (nu mber/volume)on 01-19-2022 RBC (Bld) [#/Vol] 4.50 10*6/uL 4.2-5.4 [facility] Work Phone: Blood hemoglobin measurement (mass/volume)on 01-19-2022 Hemoglobin (Bld) [Mass/Vol] 10.9 g/dL 12.0-15.[address] [facility] Work Phone: Blood lymphocytes/100 leukoc yteson 01-19-2022 Lymphocytes/100 WBC (Bld) 26.1 % 19-[address] [facility] Work Phone: Blood monocytes/100 leukocyt eson 01-19-2022 Monocytes/100 WBC (Bld) 8.7 % 0-[address] [facility] Work Phone: Blood platelet mean volumeon 01-19-2022 Platelet mean volume (Bld) [Entitic vol] 9.4 fL 6.2-12.[address] [facility] Work Phone: Determination of erythrocyte mean corpuscular volume (MCV)on 01-19-2022 MCV (RBC) [Entitic vol] 78.2 fL 81-[address] [facility] Work Phone: Erythrocyte sedimentation ra cody 01-19-2022 ESR (Bld) [Velocity] 41 mm/h 0-30 [facility] Work Phone: Hematocrit Auto (Bld) [Volum e fraction]on 01-19-2022 Hematocrit (Bld) [Volume fraction] 35.2 % 37-[address] [facility] Work Phone: Iron measurement (mass/mass) on 01-19-2022 Iron (Unsp spec) [Mass/Mass] 28 ug/dL 50-[address] [facility] Work Phone: Laboratory - Chemistry and C hemistry - challengeon 01-19-2022 ALP [Catalytic activity/Vol] 73 U/L 45-[address] [facility] Work Phone: ALT [Catalytic activity/Vol] 22 U/L 13-[address] [facility] Work Phone: CO2 [Moles/Vol] 25.0 mmol/L 21.0-32.[address] [facility] Work Phone: Globulin (S) [Mass/Vol] 3.9 g/dL 2.2-4.[address] [facility] Work Phone: Urea nitrogen/Creatinine [Mass ratio] 15.4 mg/mg 10-[address] [facility] Work Phone: Laboratory - Hematology and Cell countson 01-19-2022 Erythrocyte distribution width (RBC) [Entitic vol] 50.1 fL 35.1-43.[address] [facility] Work Phone: Erythrocyte distribution width (RBC) [Ratio] 17.6 % 11.6-14.[address] [facility] Work Phone: Immature granulocytes/100 WBC (Bld) 0.600 % 0.0-0.[address] [facility] Work Phone: Comment on above: IG% - Immature Granu locytes (promyelocytes, myelocytes and metamyelocytes) > 1% indicates that a LEFT SHIFT is Present. MCH (RBC) [Entitic mass] 24.2 pg 27.0-32.[address] [facility] Work Phone: Nucleated RBC/100 WBC (Bld) [Ratio] 0 % 0-[address] [facility] Work Phone: MCHC Auto (RBC) [Mass/Vol]on 01-19-2022 MCHC (RBC) [Mass/Vol] 31.0 g/dL 32-[address] [facility] Work Phone: No Panel Informationon 01-19 Estimated GFR (MDRD) Amer 88 mL/min >[address] [facility] Work Phone: Comment on above: GFR Calc Estimated GFR (MDRD) Non-Af Amer 73 mL/min >[address] [facility] Work Phone: Comment on above: Non- GFR Calc Platelets bldon 01-19-2022 Platelets (Bld) [#/Vol] 304 10*3/uL 150-[address] [facility] Work Phone: Serum or plasma C reactive p rotein measurement (mass/volume)on 01-19-2022 CRP [Mass/Vol] 6.53 mg/L 0.0-3.[address] [facility] Work Phone: Comment on above: C-Reactive Protein ( CRP) provides useful information for thediagnosis, therapy and monitoring of inflammatory processesand associated diseases. For the evaluation of Relative Riskfor Cardiovascular Disease, a High Sensitivity CRP (HSCRP)should be ordered. Serum or plasma albumin ricky urement (mass/volume)on 01-19-2022 Albumin [Mass/Vol] 3.7 g/dL 3.2-5.0 [facility] Work Phone: Serum or plasma albumin/glob ulin mass ratioon 01-19-2022 Albumin/Globulin [Mass ratio] 0.9 {ratio} 0.9-2.[address] [facility] Work Phone: Serum or plasma calcium ricky urement (mass/volume)on 01-19-2022 Calcium [Mass/Vol] 8.8 mg/dL 8.5-10.1 [facility] Work Phone: Serum or plasma cholesterol in HDL measurement (mass/volume)on 01-19-2022 Cholesterol in HDL [Mass/Vol] 41 mg/dL >[address] [facility] Work Phone: Comment on above: The drugs N-Acetylcy steine and Metamizole may falsely depress this assay. Reference Range HDL <40 mg/dL Low HDL Cholesterol HDL >or= 60 mg/dL High HDL Cholesterol Serum or plasma cholesterol in VLDL measurement (mass/volume)on 01-19-2022 Cholesterol in VLDL [Mass/Vol] 15 mg/dL 5-[address] [facility] Work Phone: Serum or plasma creatinine m easurement (mass/volume)on 01-19-2022 Creatinine [Mass/Vol] 0.84 mg/dL 0.55-1.[address] [facility] Work Phone: Comment on above: The validity of the calculated GFR & GFRAA in patients over 70 years has not been determined. Clinical correlation is essential. Serum or plasma ferritin moise surement (mass/volume)on 01-19-2022 Ferritin [Mass/Vol] 10 ng/mL 8-252 [facility] Work Phone: Serum or plasma low density lipoprotein (LDL) cholesterol measurement (mass/volume)on 01-19-2022 Cholesterol in LDL [Mass/Vol] 129 mg/dL 0-[address] [facility] Work Phone: Serum or plasma urea nitroge n measurement (mass/volume)on 01-19-2022 Urea nitrogen [Mass/Vol] 13 mg/dL 7-[address] [facility] Work Phone: Thin prep Papanicolaou smear with manual screeningon 01-19-2022 Thin prep Papanicolaou smear with manual screening 16 U/L 15-[address] [facility] Work Phone: Thin prep Papanicolaou smear with manual screening 6 5-[address] [facility] Work Phone: CNOVon 08-01-2020 CNOV Office Visit (PODIWS ) ADIS MOLINA ([id number]) 1960 F Date Time Provider Department 08/01/20 11:30 AM LAZARUS STOCKTON During your visit today, we recorded the [...] 5. F/u prn Lazarus Stockton DPM Podiatry [address] [facility] [address] Dept: [phone] Dept Referring Provider: SELF [200] Allergies As of Date: 08/01/2020 (No Known Allergies) Date Reviewed: 08/01/2020 Reviewed by: Vivian Daily Ma - Fully Assessed Reason for Visit: New [904258] Pain [78] Primary Visit Diagnosis:Peroneal tendinitis of left lower extremity [M76.72] Other Visit Diagnosis:Pes planus of both feet [M21.41, M21.42] Problem List As Of Date: 08/01/2020 (more content not included)... Normal [facility] XR FOOT 3V AP/LAT/OBL LTon 0 08-01-2020 [...] of acute osseous injury. 2. Calcaneal enthesophytes. Retail Pharmacy Manager: FABIEN Transcribe Date/Time: Aug 01 2020 11:35A Dictated by : DARSHANA RUSS MD This examination was interpreted and the report reviewed and electronically signed by: DARSHANA RUSS MD on Aug 01 2020 12:02PM EST [id number] Normal [facility] CORONAVIRUS PCR [CCL]on 12-23 COVID 19 Result CORPORATE SECURITY OFFICER Negative Normal [facility] Comment on above: Result Comment: Nega tive for COVID19 (SARS CoV2) by PCR. This test was developed and its performance characteristics determined by [facility] [place]. This test has been authorized by FDA under an Emergency Use Authorization (EUA). This test has been validated in accordance with the FDA's Guidance Document Policy for Diagnostics Testing in Laboratories Certified to Perform High Complexity Testing under CLIA prior to Emergency use Authorization for Coronavirus Disease 2019 during the Public Health Emergency issued on May 23, 2019. [facility] [address] [place] [address] Buster Blackburn III, M.D. [id number] Performed By: #### 2 [id number] #### [place] [id number] COVID 19 Source CORPORATE SECURITY OFFICER Nasopharyngeal Swab Normal [facility] Comment on above: Result Comment: Marisela ected on 01/10 AT 0701: Previously reported as U Performed By: #### 2 [id number] #### [address] [address] Coronavirus 2019on 0 COVID 19 Result CORPORATE SECURITY OFFICER Normal Negative for COVID19 (SARS CoV2) by PCR. [facility] Comment on above: Result Comment: Nega tive for This test was developed and its performance characteristics determined by [facility] [place]. This test has been authorized by FDA [...] developed and its performance characteristics determined by [facility] [place]. This test has been authorized by FDA [...] developed and its performance characteristics determined by [facility] [place]. This test has been authorized by FDA under an Emergency Use Authorization (EUA). This test has been validated in accordance with the FDA's Guidance Document Policy for Diagnostics Testing in Laboratories Certified to Perform High Complexity Testing under CLIA prior to Emergency use Authorization for Coronavirus Disease 2019 during the Public Health Emergency issued on May 23, 2019. COVID 19 Source CORPORATE SECURITY OFFICER Normal [facility] Comment on above: Result Comment: Naso pharyngeal Corrected on 01/10 AT 0701: Previously reported as U Swab Corrected on 01/10 AT 0701: Previously reported as U Encounters Encounter Date Encounter Type Care Provider Facility Start: 12-24-2024 End: 12-24-2024 ambulatory Cyndee Srinivasan Facility:[facility] Start: 12-04-2024 End: 12-04-[address] Cyndee Srinivasan DO Work Phone: -Laboratory Specimen Start: 12-04-2024 End: 12-04-2024 Patient encounter procedure Adamaris Gonzalez CORPORATE SECURITY OFFICER-C -Laboratory Specimen Work Phone: Start: 12-04-2024 End: 12-04-2024 ambulatory Cyndee Srinivasan Facility:[facility] Start: 03-29-2023 End: 03-30-2023 ambulatory NANETTE PATEL MD Facility:B Start: 03-29-2023 End: 03-29-2023 Patient encounter procedure NANETTE PATEL MD [facility] Start: 10-30-2022 Non-patient / Non-visit Dr. Beronica Srinivasan Work Phone: [facility] Start: 10-30-2022 End: 10-30-[address] Cyndee Srinivasan Work Phone: [facility] Work Phone: Start: 10-30-2022 End: 10-30-[address] Cyndee Srinivasan Work Phone: [facility]Cardi[facility] Services Work Phone: Start: 02-14-2022 End: 02-18-2022 Outreach Lab NANETTE PATEL MD [facility] Start: 01-26-2022 End: 01-26-[address] [facility] Work Phone: Start: 01-26-2022 End: 01-26-[address] [facility] Ul[facility]ound Start: 01-22-2022 End: 01-22-[address] [facility] Work Phone: Start: 01-22-2022 End: 01-22-2022 Patient [address] [facility] Start: 01-19-2022 End: 01-19-[address] [facility] Work Phone: Start: 01-19-2022 End: 01-19-[address] [facility]Cecily Dubois [facility] Start: 01-08-2020 End: 01-08-2020 Patient encounter procedure AQUILES VALENCIA [facility] Procedures Date Procedure Procedure Detail Performing Clinician Start: 12-04-[address] Cyndee Srinivasan DO Work Phone: Start: 01-26-2022 Ultrasonography of breast Start: 01-22-2022 Screening mammography Start: 10-11-2009 Hysteroscopy NANETTE BUTLER MD Comment on above: D&C Dilation and curettage PANKAJ PATEL MD Loop electrosurgical excision procedure of cervix NANETTE PATEL MD Plan of Treatment Date Care Activity Detail Author Start: 01-26-2022 Ultrasonography of breast Breast Limited Unilateral [facility] Work Phone: Start: 01-26-2022 US Breast limited [facility] Work Phone: Payers Date Payer Category Payer Self-pay [id number] 2024 Unknown [id number] 2023 Unknown [id number] 1960 Unknown [id number] 1960 Unknown [id number] Unknown [id number] Unknown [id number] [id number] [id number] Unknown [id number] [id number] [id number] Social History Date Type Detail Facility Tobacco smoking stat us TXIS Unknown if ever smoked [facility] Work Phone: Start: 1960 Sex Assigned At Female A [facility] Start: 02-14-2022 Tobacco smoking status Never s moked tobacco (finding) [facility] Tobacco smoking stat us NHIS Unknown if ever smoked [facility] Work Phone: Sex Female [facility] Evaluation + Plan note 02-14-2022 Laboratory Note Date & Type Note Facility 02-14-2022 Evaluation + Plan note Future Scheduled TestsPathology Curriculum Director Request 02/14/22 [facility] Progress note 08-01-2020 Note Date & Type Note Facility 08-01-2020 Note HNO ID: [id number] Author: Lazarus Stockton Service: ? Author Type: [...] 5. F/u prn Lazarus Stockton DPM Podiatry [address] [facility] [address] Dept: [phone] Dept [facility] Progress note 08-01-2020 Note Date & Type Note Facility 08-01-2020 Note HNO ID: [id number] Author: Vivian Daily Ma Service: ? Author Type: ? Type: Progress Notes Filed: 08/01/2020 12:04 PM Note Text: AMB ROOMING INTAKE FLOWSHEET DATA Patient presents with: Left Foot - New, Pain [facility] Progress note 08-01-2020 Note Date & Type Note Facility 08-01-2020 Note HNO ID: [id number] Author: RT Desire(R) Service: ? Author Type: Community Representative Type: Progress Notes Filed: 08/01/2020 11:21 AM [...] RT Desire(R) August 01, 2020 11:21 AM [facility] Evaluation note Note Date & Type Note Facility Evaluation note No assessment information availa [facility] Work Phone: Hospital course Narrative Note Date & Type Note Facility Hospital course Narrative No data available for this section [facility] Hospital Discharge instructions Note Date & Type Note Facility Hospital Discharge instructions No data available for this section [facility] Progress note Note Date & Type Note Facility Progress note No data available for this section [facility] Reason for referral (narrative) Note Date & Type Note Facility Reason for referral (narrative) No reason for referral information available [facility] Work Phone: Summary Purpose Family History No Family History [...] section and content) DATE CREATED AUTHOR 01/11/2020 [facility] DATE CREATED AUTHOR AUTHOR'S ORGANIZ ATION 01/11/2020 Cristian Silva [facility] DATE CREATED AUTHOR AUTHOR'S ORGANIZ ATION 04/25/2021 [facility] DATE CREATED AUTHOR AUTHOR'S ORGANIZ ATION 04/02/2023 [facility] ([place]) DATE CREATED AUTHOR AUTHOR'S ORGANIZ ATION 01/17/2025 [facility] Goals (unrecognized section and content) Goals may be documented in a n alternate sectionGoals may be documented in an alternate sectionGoals may be documented in an alternate section No data available for this sectionGoals may be documented in an alternate section No data available for this sectionGoals may be documented in an alternate section Care Team (unrecognized sect ion and content) Care Team Personnel Name: CYNDEE SRINIVASAN DO Member Role: Primary Care Physician Address: Address: [address] [place] [address] [place] [address]- Care Team Related Persons Name: MARY JANE MOLINA Address: [place] [address] [place], [place] [id number] Care Teams (unrecognized sec tion and content) [...] Active Dr. Jace Castillo MD Attending Provider, [facility] Active Team Status: Active Member Role/Relationship Status Dates Dr. Cyndee Srinivasan DO Primary care physician Active Team Status: Inactive Member Role/Relationship Status Dates Dr. Cyndee Srinivasan DO Primary care physician Active Start: December 04, 2024 End: December 04, 2024 DIDIER Arellano Attending physician Active S tart: December 04, 2024 End: December 04, 2024 FOR RECORDS PERTAINING TO PATIENTS WHO ARE [...] BE BASED ON THE PRIMARY CLINICAL RECORDS. [facility]. provides no warranty or guarantee of the accuracy or completeness of information in this document.
[2025-01-20 10:35] LABS: AST(SGOT) 37 U/L (<=31); Alanine Aminotransfer ALT/SGPT 52 U/L (<=34); Albumin, Serum 4.3 g/dL (3.4-4.8); Alkaline Phosphatase 68 U/L (35-104); Anion Gap 10 (5-15); BUN 13 mg/dL (4-19); BUN/Creat Ratio 15.0 RATIO (10-20); Calcium,Total 9.4 mg/dL (7.6-11.0); Carbon Dioxide 23.4 mmol/L (21.0-32.0); Chloride 106 mmol/L (98-108); Cholesterol 197 mg/dL (<=200); Ferritin 106 ng/mL (22-378); Free T3 3.3 pg/mL (2.18-3.98); Globulin 3.3 g/dL (2.2-4.2); Glucose 115 mg/dL (70-99); Low Density Lipoprotein Calc. 138 mg/dL; Potassium 4.4 mmol/L (3.3-5.1); Triglycerides 103 mg/dL; Very Low Density Lipoprotein 21 mg/dL (5-40); cholesterol:hdl ratio screen 4.91
[2025-01-20 11:10] LABS: Iron 63 ug/dL (50-170)
== END | disposition home or self-care (01) ==
PROVIDERS: PCP Family Medicine; Referring Provider Family Medicine; Visit Provider Family Medicine
DX: E03.9 Hypothyroidism, unspecified (principal); Z51.81 Encounter for therapeutic drug level monitoring; E78.5 Hyperlipidemia, unspecified; D64.9 Anemia, unspecified; E61.1 Iron deficiency; R73.01 Impaired fasting glucose
CPT/HCPCS: 36415; 80053; 80061; 82728; 83036; 83540; 84439; 84443; 84481; 85025

== ENCOUNTER 2025-02-05 10:34 | Emergency (ER) | payer MEDICARE, SELFPAY ==
[2025-02-05 10:34] VITALS: BP 187/61; PULSE 89; RESP 14; TEMP 35.6; O2SAT 98; BMI 37.3
--- NOTE | 2025-02-05 10:50 | US_ITS ---
PROCEDURE: TRANSVAGINAL NON- 02/05/2025 REASON FOR EXAM: VAGINAL BLEEDING TECHNIQUE: Procedure Code: USTVAG Modality: US Procedure: TRANSVAGINAL NON- COMPARISON: None FINDINGS: Measurements: Uterus: 9.5 x 4.8 x 6.0 cm Endometrial Thickness: 10 Right Ovary: 2.7 x 2.0 x 2.4 with a volume of 6.8 mL. Left Ovary: Not seen Uterus: Multicystic appearance is seen at the cervix near the external os that is not typical for nabothian cysts. Endometrium: Unremarkable Right ovary: Color and spectral Doppler flow is present. Left ovary: Obscured. Other: No free fluid US/Transvaginal Non- IMPRESSION: 1. The uterus and endometrium are unremarkable. Over, there is a multicystic appearance of the cervix at the level of the external os that is not typical for nabothian cysts. Recommend survey engineer consultatio n and direct inspection. History indicates there was a prior LEEP procedure in 2012. 2. Unremarkable right ovary. Left ovary not well seen. Reading Location: [id number]
--- NOTE | 2025-02-05 10:52 | EDS_ITS ---
HPI HPI - Female History of Present Illness Chief Complaint: Vag Bleeding Detail of Chief Complaint: Vaginal bleeding Informant: patient Narrative Narrative: Patient presents with vaginal bleeding that started this morning. She tells me she has had some recent UTIs. She has had for couple weeks some lower pelvic pain as well as low back pain. Called the DELINEATOR office and was told to come to the ER to be evaluated. Patient has history of a LEEP procedure in 2012. Denies feeling lightheaded or dizzy. She states that she woke up this morning and felt wetness and noted that she had blood from her vagina. PFSH PFSH Home Medications Medication Instructions Recorded Last Taken Type tranexamic acid 650 mg tablet 650 mg PO Q8H #12 tabs 1 04/07/24 Unknown Rx Allergy/AdvReac Type Severity Reaction Status Date / Time No Known Allergies Allergy Verified 02/05/25 10:35 Family History no significant family his Surgical History (Updated 02/05/25 @ 11:07 by Kelly Ochoa) H/O LEEP Social History (Updated 02/05/25 @ 11:07 by Kelly Ochoa) household members: spouse current occupational status: retired Smoking Status: Never smoker EXAM Physical Exam Const Vital Signs: 02/05/25 10:34 02/05/25 13:24 Temperature 96.1 F L Temperature Source Temporal Pulse Rate 89 78 Respiratory Rate 14 22 H Blood Pressure 187/61 H 173/78 H Blood Pressure Mean 103 109 Pulse Ox 98 99 Oxygen Delivery Method Room Air Room Air Positive well nourished and well developed General Appearance ED: well developed and NAD HEENT Reports TM's clear and moist mucous membranes normocephalic and atraumatic; Negative for trauma or tenderness Tympanic Membrane ED: Yes TM's clear Eyes PERRL and EOMs intact bilaterally General Eye ED: Negative for pale conjunctiva or scleral icterus Neck no lymphadenopathy, supple and no JVD General: Negative for tenderness Chest Wall inspection of chest normal and palpation of chest normal Chest: Negative for tenderness Resp normal respiratory effort and clear to auscultation bilaterally Effort and Inspection: Negative for respiratory distress or pain with movement Auscultation: Negative for rhonchi, wheezes or diminished lung sounds Cardio regular rate, regular rhythm, S1 normal heart sound, S2 normal heart sound and no murmurs Peripheral Pulses: pulses 2+ throughout GI normal to inspection, nondistended, normoactive bowel sounds, soft to palpation, non-tender, non-distended and no masses Back/Spine no CVA tenderness and no thoracic nor lumbar tenderness Extremity normal to inspection General Extremety ED: Negative for edema General Extremity: Negative for edema Neuro oriented x3, CN's II-XII intact bilaterally, no sensory deficits noted and gait normal Sensorium / Orientation: awake, alert, oriented to person, oriented to place and oriented to time Motor Exam: strength 5/5 throughout and strength abnormal Psych mental status grossly normal Skin no rashes or lesions noted and no wounds MDM MDM MDM Narrative Medical decision making narrative: Patient presents with vaginal bleeding that started this morning. History of a LEEP procedure many years ago. She clinically looks well. Sent in by her OB to be evaluated. CBC with differential obtained showed a white count of 6.6 with hemoglobin 12.6 and platelet count of 263. Urinalysis unremarkable. Pelvic ultrasound obtained showed uterus and endometrium to be unremarkable. There was a multicystic appearance of the cervix at the level of the external os is not typical for nabothian cyst recommend [employer] consultation and direct inspection. Unremarkable right ovary and left ovary was not well-visualized. I did do a pelvic exam and noted that there was blood clot coming from the cervical os on exam. No other lacerations noted. Did not appreciate any other abnormalities to the cervix. On bimanual exam the texture of the cervix appeared normal and did not palpate any masses. Will discuss case with patient's DELINEATOR. I was asked by Dr. Viktoria Melton to start patient on Transexanic acid to help decrease the bleeding and she can be seen in 3 days for follow-up in their office. Etiology of the bleeding uncertain. Patient advised return if persistent heavy bleeding, lightheadedness, dizziness, worsening pain, or condition worsening way. Lab Data Attestation: I reviewed the patient's lab results. Labs: Laboratory Results - last 24 hr 02/05/25 02/05/25 10:55 11:01 WBC 6.6 RBC 4.58 Hgb 12.6 Hct 38.7 MCV 84.5 MCH 27.5 MCHC 32.6 RDW Std Deviation 44.4 H RDW Coeff of Manan 14.6 Plt Count 263 MPV 9.1 Immature Gran % (Auto) 0.800 Neut % (Auto) 60.0 Lymph % (Auto) 28.5 Finney % (Auto) 7.2 Eos % (Auto) 2.4 Baso % (Auto) 1.1 H Absolute Neuts (auto) 3.9 Absolute Lymphs (auto) 1.87 Nucleated RBC % 0 Urine Color Yellow Urine Clarity Sl. Cloudy Urine pH 7.0 Ur Specific [place] 1.010 Urine Protein 30 H Urine Glucose (UA) Normal Urine Ketones Negative Urine Occult Blood 250 H Urine Nitrite Negative Urine Bilirubin Negative Urine Urobilinogen Normal Ur Leukocyte Esterase 25 H Urine RBC 0-5 SEEN Urine WBC 0-5 SEEN Ur Squamous Epith Cells 0 SEEN Urine Bacteria 0 SEEN Urine Mucus 0 SEEN Radiography Diagnostic Testing: Clinical Impression(s) from Imaging Studies Transvaginal US 02/05/25 10:50 IMPRESSION: 1. The uterus and endometrium are unremarkable. Over, there is a multicystic appearance of the cervix at the level of the external os that is not typical for nabothian cysts. Recommend remotely operated vehicle consultation and direct inspection. History indicates there was a prior LEEP procedure in 2012. 2. Unremarkable right ovary. Left ovary not well seen. Reading Location: [id number] Discharge Plan Triage Chief Complaint: Vag Bleeding ED Provider: Rd Berman Dx/Rx/DC Orders Clinical Impression: Bleeding, uterine, dysfunctional Instructions: ED Dysfunctional Uterine Bleeding Prescriptions: New tranexamic acid 650 mg tablet 650 mg PO Q8H Qty: 12 0RF Primary Care Provider: Cyndee Srinivasan Referrals: Cyndee Srinivasan DO [Primary Care Provider, Family Practice] Activity Restrictions/Additional Instructions: Follow-up with Dr. Melton in the office on Saturday please call but she believes she can see around 11 AM. Print Language: Latvian Disposition Disposition: Home, Self Care
[2025-02-05 11:07] LABS: Mucous, Urine 0 SEEN /hpf (<or=2+); Squamous Epithelial Cells - UA 0 SEEN /hpf (5-10)
[2025-02-05 11:13] LABS: Hematocrit 38.7 % (37-47); Hemoglobin 12.6 g/dL (12.0-15.0); Immature Granulocytes Count 0.050 X10^3/uL (0.0-0.0); Mean Corp Hgb Conc 32.6 g/dL (32-36); Mean Corpuscular Volume 84.5 fL (81-99); Mean Platelet Vol. 9.1 fl (6.2-12.0); NRBC Flagged by Analyzer 0 % (0-5); Platelet Count 263 K/mm3 (150-450); RBC Distribution Width CV 14.6 % (11.6-14.6); RBC Distribution Width SD 44.4 fl (35.1-43.9); Red Blood Count 4.58 M/mm3 (4.2-5.4); White Blood Count 6.6 K/mm3 (4.4-11.0)
[2025-02-05 11:22] LABS: Color, Urine Yellow (Yellow); Glucose, Dipstick Normal (Normal); Ketone-Dipstick Negative (Negative); Leukocyte Esterase-Dipstick 25 /ul (Negative); Nitrite-Dipstick Negative (Negative); Occult Blood-Urine 250 /ul (Negative); Protein-Dipstick 30 mg/dl (Negative); Specific Gravity, Urine 1.010 (1.002-1.030); Urine Bilirubin Dipstick Negative (Negative)
[2025-02-05 11:33] LABS: Red Blood Cells-Urine 0-5 SEEN /hpf (0-5)
[2025-02-05 13:24] VITALS: BP 173/78; PULSE 78; RESP 22; O2SAT 99
[2025-02-05 14:34] VITALS: BP 171/73; PULSE 76; RESP 16; TEMP 36.4; O2SAT 99
--- NOTE | 2025-02-05 14:35 | ED.RN ---
Informed Dr. Berman of BP 171/73 but pt stated she had to leave to picket [employer] grandkids, pt left department.
== END 2025-02-05 14:36 | disposition home or self-care (01) ==
PROVIDERS: Emergency Provider Emergency Medicine; PCP Family Medicine; Referring Provider Obstetrics & Gynecology Gynecology; Visit Provider Emergency Medicine
DX: N93.8 Other specified abnormal uterine and vaginal bleeding (principal)
CPT/HCPCS: 76830; 81001; 85025; 99282; A4216